=== PATIENT | male | born 1940 | race Two or more races ===

== ENCOUNTER 2016-11-16 06:03 | Inpatient (IN) | payer MEDICARE, OTHER ==
[2016-11-16] VITALS (29 sets, daily range): BP systolic 122–202; BP diastolic 49–98
[~2016-11-16] VITALS: Ht 172.7 cm; Wt 108.9 kg
[2016-11-16] MEDS ORDERED: IV SET PRIMARY PUMP SET 1 EA INFUS.SET MC ONE ×4 (06:33→10:11)
[2016-11-16] MEDS ORDERED: PROPOFOL 100 ML IV ONE (06:33)
[2016-11-16 06:38] LABS: ABG BASE EXCESS 1.9 mmol/L; ABG HCO3 38.7 mmol/L; ABG NOTIFIED BY EG; ABG PCO2 164.7 mmHg (35.0-45.0); ABG PH 6.989 (7.350-7.450); ABG PO2 188.2 mmHg (75.0-100.0); ABG TOTAL HEMOGLOBIN 14.3 G/dL (13.5-18.0); ALLEN TEST Pass; AaDO2 360.1 mmHg; O2Hb 96.9 % (94.0-97.0)
[2016-11-16] MEDS ORDERED: MIDAZOLAM HCL 2 MG/2ML VIAL ONE (06:44)
[2016-11-16 06:51] LABS: BASOPHILS # (AUTO) 0.1 /CMM (0.0-0.2); BASOPHILS % (AUTO) 0.3 % (0.0-2.0); DIFF TOTAL % 100 %; EOSINOPHILS # (AUTO) 0.3 /CMM (0.0-0.7); EOSINOPHILS % (AUTO) 1.3 % (0.0-6.0); HEMATOCRIT 44 % (39-51); HEMOGLOBIN 13.2 g/dL (13.5-17.5); LYMPHOCYTES # (AUTO) 1.6 /CMM (0.8-4.8); MEAN CORPUSCULAR HEMOGLOBIN 25 PG (26.0-33.0); MEAN CORPUSCULAR HGB CONC 30 g/dl (31.0-36.0); MEAN CORPUSCULAR VOLUME 84 fL (80-96); MONOCYTES # (AUTO) 0.6 /CMM (0.1-1.30); MONOCYTES % (AUTO) 3.1 % (2.0-12.0); NEUTROPHILS # (AUTO) 17.5 /CMM (1.8-8.9); NEUTROPHILS % (AUTO) 87.3 % (43.0-81.0); PLATELET COUNT (AUTO) 311 /CMM (150-450); RED BLOOD CELL COUNT(AUTO) 5.25 MIL/uL (4.5-6.0)
[2016-11-16] MEDS ORDERED: MIDAZOLAM 50 MG/10 ML VIAL ONE (07:00)
[2016-11-16] MEDS ORDERED: PROPOFOL 100 ML IV PRN (07:00)
[2016-11-16 07:07] LABS: INR 0.97 (0.87-1.13); LACTIC ACID 0.4 mmol/L (0.4-2.0); PROTHROMBIN TIME 10.5 SECS (9.5-12.7); TROPONIN I < 0.017 ng/mL (0.00-0.056)
[2016-11-16 07:12] LABS: ALANINE AMINOTRANSFERASE 41 U/L (12-78); ANION GAP 4 (5-14); ASPARTATE AMINOTRANSFERASE 19 U/L (15-37); BILIRUBIN,DIRECT 0.1 mg/dL (0.0-0.2); BILIRUBIN,TOTAL 0.3 mg/dL (0.2-1.0); CALCIUM, SERUM 8.7 mg/dL (8.5-10.1); CHLORIDE 104 mmol/L (98-107); CREATININE 2.3 mg/dL (0.6-1.3); GLUCOSE 208 mg/dL (74-106); INDIRECT BILIRUBIN 0.2 mg/dL (0.0-1.1); POTASSIUM 5.3 mmol/L (3.5-5.1); SODIUM SERUM 143 mmol/L (136-145); TOTAL PROTEIN, SERUM 7.5 g/dL (6.4-8.2); UREA NITROGEN, BLOOD 49 mg/dL (7-18)
[2016-11-16 07:13] LABS: CARBON DIOXIDE 40 mmol/L (21-32)
[2016-11-16] MEDS ORDERED: MIDAZOLAM HCL IV PRN (07:30)
[2016-11-16] MEDS ORDERED: VANCOMYCIN 1 GM in IV D5W 250 ML IV ONE ×2 (07:30→08:30)
[2016-11-16] MEDS ORDERED: PIPERACILLIN /TAZOBACTAM 3.375 G in IV D5W 50 ML IV ONE (07:30)
[2016-11-16] MEDS ORDERED: FUROSEMIDE 40 MG/4 ML VIAL IV ONE (07:30)
[2016-11-16] MEDS ORDERED: D5W IV PRN (07:30)
[2016-11-16] MEDS ORDERED: MIDAZOLAM HCL 2 MG/2ML VIAL IV ONE ×2 (07:30)
[2016-11-16] MEDS ORDERED: MIDAZOLAM HCL 100 MG in IV NS 0.9% 80 ML IV PRN (07:30)
[2016-11-16 07:51] LABS: ABG BASE EXCESS 1.5 mmol/L; ABG PH 7.349 (7.350-7.450); ABG PO2 129.1 mmHg (75.0-100.0); ABG TOTAL HEMOGLOBIN 13.4 G/dL (13.5-18.0); ALLEN TEST Pass; AaDO2 531.9 mmHg; O2Hb 97.2 % (94.0-97.0)
[2016-11-16 07:56] LABS: KETONES,URINE NEGATIVE (NEGATIVE); LEUKOCYTE ESTERASE ,URINE NEGATIVE (NEGATIVE)
[2016-11-16] MEDS ORDERED: FUROSEMIDE 40 MG/4 ML VIAL ONE (07:58)
[2016-11-16] MEDS ORDERED: FUROSEMIDE 20 MG/2 ML VIAL ONE (07:58)
[2016-11-16 08:01] LABS: ADD UA MICROSCOPIC YES
[2016-11-16 08:13] LABS: ADD URINE CULTURE NO; WBC,URINE 0-2 /HPF (0-3)
[2016-11-16] MEDS ORDERED: DEXTROSE 50%-WATER 50 ML DISP.SYRIN IV PRN (08:30)
[2016-11-16] MEDS ORDERED: ACETAMINOPHEN 325 MG TABLET PO PRN (08:30)
[2016-11-16] MEDS ORDERED: NOREPINEPHRINE 8 MG in IV D5W 500 ML IV PRN ×2 (08:30→09:30)
[2016-11-16] MEDS ORDERED: ALBUTEROL FS 2.5 MG/0.5 ML VIAL.NEB NEB PRN (08:30)
[2016-11-16] MEDS ORDERED: MORPHINE SULFATE INJ 2 MG/ML DISP.SYRIN IV PRN (08:30)
[2016-11-16] MEDS ORDERED: IPRATROPIUM NEB FS 0.5 MG/2.5 ML AMPUL.NEB NEB PRN (08:30)
[2016-11-16] MEDS ORDERED: SODIUM POLYSTYRENE SULFONATE 15 G/60 ML BOTTLE PO ONE (08:30)
[2016-11-16] MEDS ORDERED: BUMETANIDE INJ 1 MG in IV NS 0.9% 40 ML IV ONE (08:30)
[2016-11-16] MEDS ORDERED: REPA1TAB6 PO (08:37)
[2016-11-16] MEDS ORDERED: OXYC30TA2 PO (08:37)
[2016-11-16] MEDS ORDERED: ASPI-991 PO (08:37)
[2016-11-16] MEDS ORDERED: PRED10TA PO (08:37)
[2016-11-16] MEDS ORDERED: TAMS0.4C34 PO (08:37)
[2016-11-16] MEDS ORDERED: CLOP75TA2 PO (08:37)
[2016-11-16] MEDS ORDERED: ATOR20TA PO (08:37)
[2016-11-16] MEDS ORDERED: FENO145T20 PO (08:37)
[2016-11-16] MEDS ORDERED: CARV25TA2 PO (08:37)
[2016-11-16] MEDS ORDERED: ASPIRIN EC 81 MG TABLET.DR PO SCH (09:00)
[2016-11-16] MEDS ORDERED: FEE PK DOSING 1 MIN EA MC ONE (09:08)
[2016-11-16] MEDS ORDERED: SUCCINYLCHOLINE CHLORIDE 20 MG/ML VIAL IV ONE (09:18)
[2016-11-16] MEDS ORDERED: ETOMIDATE 2 MG/ML VIAL IV ONE (09:18)
[2016-11-16] MEDS ORDERED: FEE EMEERGENCY 1 MIN EA MC ONE (09:18)
[2016-11-16] MEDS: PROPOFOL 100 ML IV PRN ×3 (10:06→19:33)
[2016-11-16 11:36] LABS: ABG BASE EXCESS 6.3 mmol/L; ABG HCO3 32.9 mmol/L; ABG PCO2 56.2 mmHg (35.0-45.0); ABG PH 7.385 (7.350-7.450); ABG TOTAL HEMOGLOBIN 12.7 G/dL (13.5-18.0); ALLEN TEST Pass; AaDO2 440.4 mmHg; O2Hb 93.2 % (94.0-97.0)
[2016-11-16 12:09] LABS: CREATININE, URINE 151.9 MG/DL (30.0-125.0)
[2016-11-16] MEDS: TAMSULOSIN 0.4 MG CAP.SR.24H PO SCH (12:25)
[2016-11-16] MEDS: PANTOPRAZOLE 40 MG VIAL IV SCH (12:25)
[2016-11-16] MEDS: ATORVASTATIN 10 MG TABLET PO SCH (12:25)
[2016-11-16] MEDS: FENOFIBRATE NANOCRYS (145 MG) 145 MG TABLET PO SCH (12:25)
[2016-11-16] MEDS: methylPREDNISolone SOD SUCC 125 MG/2ML VIAL IV SCH ×3 (12:26→23:13)
[2016-11-16] MEDS: BLOOD SUGAR DIAGNOSTIC 1 EACH STRIP IN SCH ×3 (12:27→23:27)
[2016-11-16] MEDS: INSULIN REGULAR, HUMAN 100 UNIT/ML 3 ML VIAL SQ PRN ×3 (12:29→23:27)
[2016-11-16] MEDS: PIPERACILLIN /TAZOBACTAM 3.375 G in IV D5W 50 ML IV SCH ×3 (12:30→23:13)
[2016-11-16] MEDS: CLOPIDOGREL BISULFATE 75 MG TABLET PO SCH (12:30)
[2016-11-16] MEDS: HEPARIN SODIUM, PORCINE 5000 UNITS/1 ML VIAL SQ SCH ×2 (13:33→20:44)
[2016-11-16] MEDS: IPRATROPIUM NEB FS 0.5 MG/2.5 ML AMPUL.NEB NEB SCH ×2 (14:12→19:42)
[2016-11-16 15:07] LABS: ALBUMIN 2.5 g/dL (3.4-5.0); BILIRUBIN,DIRECT 0.2 mg/dL (0.0-0.2); BILIRUBIN,TOTAL 0.6 mg/dL (0.2-1.0); INDIRECT BILIRUBIN 0.4 mg/dL (0.0-1.1); TOTAL PROTEIN, SERUM 6.2 g/dL (6.4-8.2)
[2016-11-16 15:10] LABS: LACTIC ACID 1.4 mmol/L (0.4-2.0)
[2016-11-16] MEDS ORDERED: ALBUTEROL FS 2.5 MG/0.5 ML VIAL.NEB NEB SCH (15:30)
[2016-11-16] MEDS ORDERED: hydrALAZINE HCL IV 20 MG VIAL IV ONE (15:30)
[2016-11-16] MEDS: FUROSEMIDE 40 MG/4 ML VIAL IV SCH (16:26)
[2016-11-16] MEDS: ALBUTEROL FS 2.5 MG/0.5 ML VIAL.NEB NEB SCH (19:42)
[2016-11-16] MEDS ORDERED: SECONDARY IV SET 1 EA INFUS.SET MC ONE (23:05)
[2016-11-16] MEDS ORDERED: IV NS 0.9% 250 ML IV ONE (23:08)
[2016-11-17] VITALS (54 sets, daily range): BP systolic 113–192; BP diastolic 49–84
[2016-11-17] MEDS: ALBUTEROL FS 2.5 MG/0.5 ML VIAL.NEB NEB SCH ×4 (01:02→19:39)
[2016-11-17] MEDS: IPRATROPIUM NEB FS 0.5 MG/2.5 ML AMPUL.NEB NEB SCH ×4 (01:02→19:39)
[2016-11-17] MEDS ORDERED: hydrALAZINE HCL IV 20 MG VIAL ONE (02:38)
[2016-11-17] MEDS: hydrALAZINE HCL IV 20 MG VIAL IV PRN ×2 (02:43→19:00)
[2016-11-17] MEDS ORDERED: PROPOFOL 100 ML IV ONE (03:44)
[2016-11-17] MEDS: PROPOFOL 100 ML IV PRN ×2 (03:47→08:39)
[2016-11-17 04:52] LABS: DIFF TOTAL % 100 %; HEMATOCRIT 36 % (39-51); HEMOGLOBIN 11.6 g/dL (13.5-17.5); LYMPHOCYTES # (AUTO) 0.5 /CMM (0.8-4.8); LYMPHOCYTES % (AUTO) 3.8 % (20.0-44.0); MEAN CORPUSCULAR HEMOGLOBIN 26 PG (26.0-33.0); MEAN CORPUSCULAR HGB CONC 32 g/dl (31.0-36.0); MEAN CORPUSCULAR VOLUME 80 fL (80-96); MONOCYTES # (AUTO) 0.2 /CMM (0.1-1.30); MONOCYTES % (AUTO) 1.4 % (2.0-12.0); NEUTROPHILS # (AUTO) 12.8 /CMM (1.8-8.9); NEUTROPHILS % (AUTO) 94.8 % (43.0-81.0); PLATELET COUNT (AUTO) 254 /CMM (150-450); RED BLOOD CELL COUNT(AUTO) 4.46 MIL/uL (4.5-6.0); WHITE BLOOD COUNT (AUTO) 13.5 K/uL (4.3-11.0)
[2016-11-17] MEDS: methylPREDNISolone SOD SUCC 125 MG/2ML VIAL IV SCH ×4 (05:13→23:33)
[2016-11-17] MEDS: PIPERACILLIN /TAZOBACTAM 3.375 G in IV D5W 50 ML IV SCH ×4 (05:14→23:32)
[2016-11-17 05:15] LABS: ALBUMIN 2.1 g/dL (3.4-5.0); BILIRUBIN,TOTAL 0.5 mg/dL (0.2-1.0); CALCIUM, SERUM 7.7 mg/dL (8.5-10.1); CREATININE 2.7 mg/dL (0.6-1.3); PHOSPHORUS 2.8 mg/dL (2.5-4.9); POTASSIUM 3.4 mmol/L (3.5-5.1); TOTAL PROTEIN, SERUM 5.6 g/dL (6.4-8.2)
[2016-11-17 05:16] LABS: CHOLESTEROL 163 mg/dL (<200); HDL CHOLESTEROL 47 mg/dL (40-60); LDL 87 mg/dL (0-99); TRIGLYCERIDES 157 mg/dL (30-150)
[2016-11-17] MEDS: HEPARIN SODIUM, PORCINE 5000 UNITS/1 ML VIAL SQ SCH ×3 (05:16→21:02)
[2016-11-17 05:24] LABS: TROPONIN I 0.06 ng/mL (0.00-0.056)
[2016-11-17 05:30] LABS: CREATINE KINASE MB 0.4 ng/mL (0-3.6)
[2016-11-17 05:42] LABS: INR 1.06 (0.87-1.13); PROTHROMBIN TIME 11.5 SECS (9.5-12.7)
[2016-11-17] MEDS: INSULIN REGULAR, HUMAN 100 UNIT/ML 3 ML VIAL SQ PRN ×4 (05:47→23:35)
[2016-11-17] MEDS: BLOOD SUGAR DIAGNOSTIC 1 EACH STRIP IN SCH ×4 (05:49→23:35)
[2016-11-17] MEDS ORDERED: DC PROPOFOL WHEN EXTUBATED XX PRN (08:00)
[2016-11-17] MEDS: FENOFIBRATE NANOCRYS (145 MG) 145 MG TABLET PO SCH (08:40)
[2016-11-17] MEDS: PANTOPRAZOLE 40 MG VIAL IV SCH (08:40)
[2016-11-17] MEDS: TAMSULOSIN 0.4 MG CAP.SR.24H PO SCH (08:40)
[2016-11-17] MEDS: ASPIRIN 81 MG TAB.CHEW PO SCH (08:40)
[2016-11-17] MEDS: ATORVASTATIN 10 MG TABLET PO SCH (08:40)
[2016-11-17] MEDS: CLOPIDOGREL BISULFATE 75 MG TABLET PO SCH (08:40)
[2016-11-17] MEDS: FUROSEMIDE 40 MG/4 ML VIAL IV SCH (08:41)
[2016-11-17] MEDS ORDERED: VANCOMYCIN 1 GM in IV D5W 250 ML IV SCH (09:00)
[2016-11-17] MEDS ORDERED: POTASSIUM CHLORIDE 20 MEQ TAB.PRT.SR PO ONE (10:00)
[2016-11-17 10:14] LABS: IRON, SERUM 16 ug/dl (50-175); PERCENT SATURATION 7 % (14-33); TOTAL IRON BINDING CAPACITY 227 ug/dl (250-450)
[2016-11-17] MEDS: AMLODIPINE BESYLATE 10 MG TABLET PO SCH (10:50)
[2016-11-17 11:50] LABS: ABG BASE EXCESS 11.1 mmol/L; ABG HCO3 35.5 mmol/L; ABG PCO2 45.4 mmHg (35.0-45.0); ABG PH 7.511 (7.350-7.450); ABG PO2 73.7 mmHg (75.0-100.0); ALLEN TEST Pass; AaDO2 231.7 mmHg; O2Hb 93.8 % (94.0-97.0)
[2016-11-17] MEDS ORDERED: IV SET PRIMARY PUMP SET 1 EA INFUS.SET MC ONE (12:08)
[2016-11-17] MEDS ORDERED: VANCOMYCIN 1.25 GM in IV D5W 500 ML IV SCH (14:00)
[2016-11-17] MEDS ORDERED: FUROSEMIDE 40 MG/4 ML VIAL IV SCH (17:00)
[2016-11-17] MEDS ORDERED: PANTOPRAZOLE 40 MG VIAL IV SCH (19:30)
[2016-11-17] MEDS ORDERED: ZOLPIDEM TARTRATE 5 MG TABLET PO ONE (23:00)
[2016-11-18] VITALS (34 sets, daily range): BP systolic 135–192; BP diastolic 45–96
[2016-11-18] MEDS: ALBUTEROL FS 2.5 MG/0.5 ML VIAL.NEB NEB SCH ×4 (02:07→19:50)
[2016-11-18] MEDS: IPRATROPIUM NEB FS 0.5 MG/2.5 ML AMPUL.NEB NEB SCH ×4 (02:07→19:50)
[2016-11-18 04:46] LABS: BASOPHILS % (AUTO) 0.1 % (0.0-2.0); DIFF TOTAL % 100 %; HEMATOCRIT 39 % (39-51); HEMOGLOBIN 12.3 g/dL (13.5-17.5); LYMPHOCYTES # (AUTO) 0.4 /CMM (0.8-4.8); LYMPHOCYTES % (AUTO) 2.4 % (20.0-44.0); MEAN CORPUSCULAR HEMOGLOBIN 26 PG (26.0-33.0); MEAN CORPUSCULAR HGB CONC 32 g/dl (31.0-36.0); MEAN CORPUSCULAR VOLUME 81 fL (80-96); MONOCYTES # (AUTO) 0.6 /CMM (0.1-1.30); NEUTROPHILS # (AUTO) 17.4 /CMM (1.8-8.9); NEUTROPHILS % (AUTO) 94.5 % (43.0-81.0); PLATELET COUNT (AUTO) 270 /CMM (150-450); RED BLOOD CELL COUNT(AUTO) 4.77 MIL/uL (4.5-6.0); WHITE BLOOD COUNT (AUTO) 18.4 K/uL (4.3-11.0)
[2016-11-18 05:06] LABS: CALCIUM, SERUM 7.8 mg/dL (8.5-10.1); PHOSPHORUS 5.4 mg/dL (2.5-4.9); POTASSIUM 3.3 mmol/L (3.5-5.1)
[2016-11-18] MEDS: BLOOD SUGAR DIAGNOSTIC 1 EACH STRIP IN SCH ×3 (06:00→17:16)
[2016-11-18] MEDS: methylPREDNISolone SOD SUCC 125 MG/2ML VIAL IV SCH ×3 (06:38→17:16)
[2016-11-18] MEDS: hydrALAZINE HCL IV 20 MG VIAL IV PRN ×2 (06:38→18:35)
[2016-11-18] MEDS: HEPARIN SODIUM, PORCINE 5000 UNITS/1 ML VIAL SQ SCH ×3 (06:39→21:23)
[2016-11-18] MEDS: INSULIN REGULAR, HUMAN 100 UNIT/ML 3 ML VIAL SQ PRN ×3 (06:40→17:21)
[2016-11-18] MEDS: PIPERACILLIN /TAZOBACTAM 3.375 G in IV D5W 50 ML IV SCH ×3 (06:42→17:17)
[2016-11-18] MEDS ORDERED: POTASSIUM CHLORIDE 20 MEQ POWDER PACKET PO ONE (09:00)
[2016-11-18 09:13] LABS: ABG BASE EXCESS 10.3 mmol/L; ABG HCO3 36.4 mmol/L; ABG PCO2 54.2 mmHg (35.0-45.0); ABG PH 7.445 (7.350-7.450); ABG PO2 57.9 mmHg (75.0-100.0); ABG TOTAL HEMOGLOBIN 13.9 G/dL (13.5-18.0); ALLEN TEST Pass; AaDO2 128.6 mmHg; O2Hb 88.5 % (94.0-97.0)
[2016-11-18] MEDS: FUROSEMIDE 40 MG/4 ML VIAL IV SCH ×2 (09:31→17:16)
[2016-11-18] MEDS: ASPIRIN 81 MG TAB.CHEW PO SCH (09:32)
[2016-11-18] MEDS: PANTOPRAZOLE 40 MG VIAL IV SCH (09:32)
[2016-11-18] MEDS: CLOPIDOGREL BISULFATE 75 MG TABLET PO SCH (09:33)
[2016-11-18] MEDS: AMLODIPINE BESYLATE 10 MG TABLET PO SCH (09:33)
[2016-11-18] MEDS: ATORVASTATIN 10 MG TABLET PO SCH (09:33)
[2016-11-18] MEDS: FENOFIBRATE NANOCRYS (145 MG) 145 MG TABLET PO SCH (09:33)
[2016-11-18] MEDS: hydrALAZINE HCL 25 MG TABLET PO SCH ×3 (09:36→21:22)
[2016-11-18] MEDS: TAMSULOSIN 0.4 MG CAP.SR.24H PO SCH (09:36)
[2016-11-18] MEDS ORDERED: POLYETHYLENE GLYCOL 3350 17 GM POWD.PACK PO PRN (12:00)
[2016-11-18] MEDS: MENTHOL/CETYLPYRD (CEPACOL) 1 LOZ LOZENGE PO PRN ×2 (12:42→17:19)
[2016-11-18] MEDS ORDERED: IV NS 0.9% 250 ML IV ONE (17:07)
[2016-11-18] MEDS: Z GUARD REMEDY 2 OZ OINT TP SCH ×2 (17:16→17:18)
[2016-11-18] MEDS: LEVOFLOXACIN (250MG) 250 MG TABLET PO SCH (18:35)
[2016-11-19] VITALS (24 sets, daily range): BP systolic 142–190; BP diastolic 56–90
[2016-11-19] MEDS: BLOOD SUGAR DIAGNOSTIC 1 EACH STRIP IN SCH ×5 (00:16→21:17)
[2016-11-19] MEDS: methylPREDNISolone SOD SUCC 125 MG/2ML VIAL IV SCH ×2 (00:16→04:34)
[2016-11-19] MEDS: INSULIN REGULAR, HUMAN 100 UNIT/ML 3 ML VIAL SQ PRN ×3 (00:17→21:11)
[2016-11-19] MEDS: IPRATROPIUM NEB FS 0.5 MG/2.5 ML AMPUL.NEB NEB SCH ×4 (01:28→19:48)
[2016-11-19] MEDS: ALBUTEROL FS 2.5 MG/0.5 ML VIAL.NEB NEB SCH ×4 (01:28→19:49)
[2016-11-19 04:42] LABS: DIFF TOTAL % 100 %; HEMATOCRIT 40 % (39-51); HEMOGLOBIN 12.9 g/dL (13.5-17.5); LYMPHOCYTES # (AUTO) 0.6 /CMM (0.8-4.8); LYMPHOCYTES % (AUTO) 3.9 % (20.0-44.0); MEAN CORPUSCULAR HEMOGLOBIN 26 PG (26.0-33.0); MEAN CORPUSCULAR HGB CONC 32 g/dl (31.0-36.0); MEAN CORPUSCULAR VOLUME 81 fL (80-96); MONOCYTES # (AUTO) 0.5 /CMM (0.1-1.30); MONOCYTES % (AUTO) 3.3 % (2.0-12.0); NEUTROPHILS # (AUTO) 15.1 /CMM (1.8-8.9); NEUTROPHILS % (AUTO) 92.8 % (43.0-81.0); PLATELET COUNT (AUTO) 273 /CMM (150-450); RED BLOOD CELL COUNT(AUTO) 4.98 MIL/uL (4.5-6.0); WHITE BLOOD COUNT (AUTO) 16.3 K/uL (4.3-11.0)
[2016-11-19] MEDS: HEPARIN SODIUM, PORCINE 5000 UNITS/1 ML VIAL SQ SCH ×3 (04:56→21:07)
[2016-11-19] MEDS: hydrALAZINE HCL 25 MG TABLET PO SCH ×4 (05:00→21:06)
[2016-11-19 05:09] LABS: CALCIUM, SERUM 8.2 mg/dL (8.5-10.1); CREATININE 3.1 mg/dL (0.6-1.3); POTASSIUM 3.7 mmol/L (3.5-5.1)
[2016-11-19] MEDS: CLOPIDOGREL BISULFATE 75 MG TABLET PO SCH (08:22)
[2016-11-19] MEDS: AMLODIPINE BESYLATE 10 MG TABLET PO SCH (08:22)
[2016-11-19] MEDS: PANTOPRAZOLE 40 MG VIAL IV SCH (08:23)
[2016-11-19] MEDS: ATORVASTATIN 10 MG TABLET PO SCH (08:23)
[2016-11-19] MEDS: ASPIRIN 81 MG TAB.CHEW PO SCH (08:23)
[2016-11-19] MEDS: FENOFIBRATE NANOCRYS (145 MG) 145 MG TABLET PO SCH (08:23)
[2016-11-19] MEDS: FUROSEMIDE 40 MG/4 ML VIAL IV SCH ×2 (08:24→17:07)
[2016-11-19] MEDS: TAMSULOSIN 0.4 MG CAP.SR.24H PO SCH (08:25)
[2016-11-19] MEDS: Z GUARD REMEDY 2 OZ OINT TP SCH ×2 (08:26→17:07)
[2016-11-19] MEDS ORDERED: SALINE NASAL SPRAY 0.65% 1 BOTTLE BOTTLE NS PRN (09:30)
[2016-11-19] MEDS: MENTHOL/CETYLPYRD (CEPACOL) 1 LOZ LOZENGE PO PRN (10:23)
[2016-11-19] MEDS: LEVOFLOXACIN (250MG) 250 MG TABLET PO SCH (17:59)
[2016-11-19] MEDS ORDERED: DEXTROSE 50%-WATER 50 ML DISP.SYRIN IV PRN (20:30)
[2016-11-20] VITALS (7 sets, daily range): BP systolic 139–185; BP diastolic 55–85
[2016-11-20] MEDS: IPRATROPIUM NEB FS 0.5 MG/2.5 ML AMPUL.NEB NEB SCH ×4 (01:27→19:17)
[2016-11-20] MEDS: ALBUTEROL FS 2.5 MG/0.5 ML VIAL.NEB NEB SCH ×4 (01:27→19:17)
[2016-11-20] MEDS: hydrALAZINE HCL IV 20 MG VIAL IV PRN (02:09)
[2016-11-20] MEDS: hydrALAZINE HCL 25 MG TABLET PO SCH ×3 (06:03→21:35)
[2016-11-20] MEDS: HEPARIN SODIUM, PORCINE 5000 UNITS/1 ML VIAL SQ SCH ×3 (06:04→21:34)
[2016-11-20] MEDS: BLOOD SUGAR DIAGNOSTIC 1 EACH STRIP IN SCH ×4 (06:27→21:38)
[2016-11-20 06:54] LABS: BASOPHILS % (AUTO) 0.1 % (0.0-2.0); DIFF TOTAL % 100 %; EOSINOPHILS % (AUTO) 0.2 % (0.0-6.0); HEMATOCRIT 45 % (39-51); LYMPHOCYTES # (AUTO) 1.3 /CMM (0.8-4.8); LYMPHOCYTES % (AUTO) 8.5 % (20.0-44.0); MEAN CORPUSCULAR HEMOGLOBIN 26 PG (26.0-33.0); MEAN CORPUSCULAR HGB CONC 31 g/dl (31.0-36.0); MEAN CORPUSCULAR VOLUME 81 fL (80-96); MONOCYTES % (AUTO) 6.7 % (2.0-12.0); NEUTROPHILS % (AUTO) 84.5 % (43.0-81.0); PLATELET COUNT (AUTO) 276 /CMM (150-450); RED BLOOD CELL COUNT(AUTO) 5.49 MIL/uL (4.5-6.0); WHITE BLOOD COUNT (AUTO) 15.4 K/uL (4.3-11.0)
[2016-11-20 07:20] LABS: CALCIUM, SERUM 8.3 mg/dL (8.5-10.1); CREATININE 2.9 mg/dL (0.6-1.3); POTASSIUM 3.5 mmol/L (3.5-5.1)
[2016-11-20] MEDS: PANTOPRAZOLE 40 MG VIAL IV SCH (09:09)
[2016-11-20] MEDS: CLOPIDOGREL BISULFATE 75 MG TABLET PO SCH (09:09)
[2016-11-20] MEDS: methylPREDNISolone SOD SUCC 125 MG/2ML VIAL IV SCH (09:09)
[2016-11-20] MEDS: FENOFIBRATE NANOCRYS (145 MG) 145 MG TABLET PO SCH (09:10)
[2016-11-20] MEDS: ATORVASTATIN 10 MG TABLET PO SCH (09:10)
[2016-11-20] MEDS: TAMSULOSIN 0.4 MG CAP.SR.24H PO SCH (09:10)
[2016-11-20] MEDS: ASPIRIN 81 MG TAB.CHEW PO SCH (09:10)
[2016-11-20] MEDS: NIFEdipine XL (30MG) 30 MG TAB PO SCH (09:10)
[2016-11-20] MEDS: Z GUARD REMEDY 2 OZ OINT TP SCH ×2 (09:10→17:11)
[2016-11-20] MEDS: FUROSEMIDE 40 MG/4 ML VIAL IV SCH (09:13)
[2016-11-20] MEDS: INSULIN REGULAR, HUMAN 100 UNIT/ML 3 ML VIAL SQ PRN ×3 (12:08→21:35)
[2016-11-20] MEDS: Z GUARD REMEDY 2 OZ OINT TP PRN (17:11)
[2016-11-20] MEDS: LEVOFLOXACIN (250MG) 250 MG TABLET PO SCH (17:30)
[2016-11-21] VITALS: BP 149/56
[2016-11-21] MEDS: ALBUTEROL FS 2.5 MG/0.5 ML VIAL.NEB NEB SCH ×4 (02:26→19:46)
[2016-11-21] MEDS: IPRATROPIUM NEB FS 0.5 MG/2.5 ML AMPUL.NEB NEB SCH ×4 (02:26→19:46)
[2016-11-21 04:00] VITALS: BP 153/50
[2016-11-21] MEDS: hydrALAZINE HCL 25 MG TABLET PO SCH ×3 (05:52→21:33)
[2016-11-21] MEDS: HEPARIN SODIUM, PORCINE 5000 UNITS/1 ML VIAL SQ SCH ×3 (05:57→21:34)
[2016-11-21] MEDS: BLOOD SUGAR DIAGNOSTIC 1 EACH STRIP IN SCH ×4 (06:31→21:43)
[2016-11-21 07:32] LABS: DIFF TOTAL % 100 %; EOSINOPHILS # (AUTO) 0.1 /CMM (0.0-0.7); EOSINOPHILS % (AUTO) 1.1 % (0.0-6.0); HEMATOCRIT 42 % (39-51); HEMOGLOBIN 13.1 g/dL (13.5-17.5); LYMPHOCYTES # (AUTO) 1.3 /CMM (0.8-4.8); LYMPHOCYTES % (AUTO) 9.4 % (20.0-44.0); MEAN CORPUSCULAR HEMOGLOBIN 26 PG (26.0-33.0); MEAN CORPUSCULAR HGB CONC 31 g/dl (31.0-36.0); MEAN CORPUSCULAR VOLUME 82 fL (80-96); MONOCYTES # (AUTO) 0.9 /CMM (0.1-1.30); MONOCYTES % (AUTO) 6.6 % (2.0-12.0); NEUTROPHILS # (AUTO) 11.1 /CMM (1.8-8.9); NEUTROPHILS % (AUTO) 82.9 % (43.0-81.0); PLATELET COUNT (AUTO) 247 /CMM (150-450); WHITE BLOOD COUNT (AUTO) 13.4 K/uL (4.3-11.0)
[2016-11-21 07:45] LABS: CALCIUM, SERUM 8.4 mg/dL (8.5-10.1); CREATININE 2.6 mg/dL (0.6-1.3); POTASSIUM 3.5 mmol/L (3.5-5.1)
[2016-11-21 08:00] VITALS: BP 144/63
[2016-11-21] MEDS: methylPREDNISolone SOD SUCC 125 MG/2ML VIAL IV SCH (08:10)
[2016-11-21] MEDS: FENOFIBRATE NANOCRYS (145 MG) 145 MG TABLET PO SCH (08:10)
[2016-11-21] MEDS: CLOPIDOGREL BISULFATE 75 MG TABLET PO SCH (08:10)
[2016-11-21] MEDS: ATORVASTATIN 10 MG TABLET PO SCH (08:10)
[2016-11-21] MEDS: FUROSEMIDE 40 MG/4 ML VIAL IV SCH ×2 (08:10→17:28)
[2016-11-21] MEDS: TAMSULOSIN 0.4 MG CAP.SR.24H PO SCH (08:10)
[2016-11-21] MEDS: ASPIRIN 81 MG TAB.CHEW PO SCH (08:10)
[2016-11-21] MEDS: PANTOPRAZOLE 40 MG VIAL IV SCH (08:10)
[2016-11-21] MEDS: Z GUARD REMEDY 2 OZ OINT TP PRN (08:11)
[2016-11-21] MEDS: NIFEdipine XL (30MG) 30 MG TAB PO SCH (08:11)
[2016-11-21] MEDS: Z GUARD REMEDY 2 OZ OINT TP SCH ×2 (08:12→17:29)
[2016-11-21 12:00] VITALS: BP 114/51
[2016-11-21] MEDS: INSULIN REGULAR, HUMAN 100 UNIT/ML 3 ML VIAL SQ PRN ×2 (12:19→17:31)
[2016-11-21] MEDS: MENTHOL/CETYLPYRD (CEPACOL) 1 LOZ LOZENGE PO PRN (12:26)
[2016-11-21 16:00] VITALS: BP_SYST 140; BP_SYST 146; BP_DIAS 51; BP_DIAS 98
[2016-11-21] MEDS: LEVOFLOXACIN (250MG) 250 MG TABLET PO SCH (17:31)
[2016-11-21 20:00] VITALS: BP 160/60
[2016-11-22] MEDS: ALBUTEROL FS 2.5 MG/0.5 ML VIAL.NEB NEB SCH ×5 (02:40→20:51)
[2016-11-22] MEDS: IPRATROPIUM NEB FS 0.5 MG/2.5 ML AMPUL.NEB NEB SCH ×5 (02:41→20:51)
[2016-11-22 04:00] VITALS: BP 159/57
[2016-11-22] MEDS: hydrALAZINE HCL 25 MG TABLET PO SCH ×3 (04:31→21:12)
[2016-11-22] MEDS: HEPARIN SODIUM, PORCINE 5000 UNITS/1 ML VIAL SQ SCH ×3 (04:31→21:13)
[2016-11-22 07:19] LABS: BASOPHILS % (AUTO) 0.1 % (0.0-2.0); DIFF TOTAL % 100 %; EOSINOPHILS # (AUTO) 0.2 /CMM (0.0-0.7); EOSINOPHILS % (AUTO) 1.7 % (0.0-6.0); HEMATOCRIT 39 % (39-51); HEMOGLOBIN 12.4 g/dL (13.5-17.5); LYMPHOCYTES # (AUTO) 1.2 /CMM (0.8-4.8); LYMPHOCYTES % (AUTO) 9.4 % (20.0-44.0); MEAN CORPUSCULAR HEMOGLOBIN 26 PG (26.0-33.0); MEAN CORPUSCULAR HGB CONC 32 g/dl (31.0-36.0); MEAN CORPUSCULAR VOLUME 82 fL (80-96); MONOCYTES # (AUTO) 0.8 /CMM (0.1-1.30); MONOCYTES % (AUTO) 6.5 % (2.0-12.0); NEUTROPHILS # (AUTO) 10.5 /CMM (1.8-8.9); NEUTROPHILS % (AUTO) 82.3 % (43.0-81.0); PLATELET COUNT (AUTO) 231 /CMM (150-450); RED BLOOD CELL COUNT(AUTO) 4.78 MIL/uL (4.5-6.0); WHITE BLOOD COUNT (AUTO) 12.8 K/uL (4.3-11.0)
[2016-11-22 07:45] LABS: CALCIUM, SERUM 7.9 mg/dL (8.5-10.1); CREATININE 2.5 mg/dL (0.6-1.3); POTASSIUM 3.6 mmol/L (3.5-5.1)
[2016-11-22 08:00] VITALS: BP 162/49
[2016-11-22] MEDS: BLOOD SUGAR DIAGNOSTIC 1 EACH STRIP IN SCH ×4 (08:22→21:17)
[2016-11-22] MEDS: methylPREDNISolone SOD SUCC 125 MG/2ML VIAL IV SCH (08:26)
[2016-11-22] MEDS: TAMSULOSIN 0.4 MG CAP.SR.24H PO SCH (08:26)
[2016-11-22] MEDS: PANTOPRAZOLE 40 MG VIAL IV SCH (08:27)
[2016-11-22] MEDS: NIFEdipine XL (30MG) 30 MG TAB PO SCH (08:27)
[2016-11-22] MEDS: FENOFIBRATE NANOCRYS (145 MG) 145 MG TABLET PO SCH (08:27)
[2016-11-22] MEDS: FUROSEMIDE 40 MG/4 ML VIAL IV SCH ×2 (08:27→16:47)
[2016-11-22] MEDS: ASPIRIN 81 MG TAB.CHEW PO SCH (08:27)
[2016-11-22] MEDS: CLOPIDOGREL BISULFATE 75 MG TABLET PO SCH (08:27)
[2016-11-22] MEDS: ATORVASTATIN 10 MG TABLET PO SCH (08:27)
[2016-11-22] MEDS: Z GUARD REMEDY 2 OZ OINT TP SCH ×2 (09:00→17:36)
[2016-11-22] MEDS ORDERED: METOLAZONE 2.5 MG TABLET PO ONE (10:30)
[2016-11-22 12:00] VITALS: BP 141/75
[2016-11-22] MEDS: INSULIN REGULAR, HUMAN 100 UNIT/ML 3 ML VIAL SQ PRN (12:35)
[2016-11-22 14:00] VITALS: BP 126/44
[2016-11-22] MEDS: LEVOFLOXACIN (250MG) 250 MG TABLET PO SCH (17:37)
[2016-11-22 20:00] VITALS: BP 142/59
[2016-11-22 23:00] VITALS: BP 136/58
[2016-11-23] VITALS: BP 136/58
[2016-11-23] MEDS: IPRATROPIUM NEB FS 0.5 MG/2.5 ML AMPUL.NEB NEB SCH ×4 (01:30→19:48)
[2016-11-23] MEDS: ALBUTEROL FS 2.5 MG/0.5 ML VIAL.NEB NEB SCH ×4 (01:30→19:48)
[2016-11-23] MEDS: HEPARIN SODIUM, PORCINE 5000 UNITS/1 ML VIAL SQ SCH (05:00)
[2016-11-23] MEDS: hydrALAZINE HCL 25 MG TABLET PO SCH ×3 (05:56→21:51)
[2016-11-23] MEDS: BLOOD SUGAR DIAGNOSTIC 1 EACH STRIP IN SCH ×4 (06:32→22:20)
[2016-11-23 07:43] LABS: BASOPHILS % (AUTO) 0.2 % (0.0-2.0); DIFF TOTAL % 100 %; EOSINOPHILS # (AUTO) 0.4 /CMM (0.0-0.7); EOSINOPHILS % (AUTO) 2.9 % (0.0-6.0); HEMATOCRIT 41 % (39-51); HEMOGLOBIN 12.9 g/dL (13.5-17.5); LYMPHOCYTES # (AUTO) 1.2 /CMM (0.8-4.8); LYMPHOCYTES % (AUTO) 9.5 % (20.0-44.0); MEAN CORPUSCULAR HEMOGLOBIN 26 PG (26.0-33.0); MEAN CORPUSCULAR HGB CONC 32 g/dl (31.0-36.0); MEAN CORPUSCULAR VOLUME 81 fL (80-96); MONOCYTES # (AUTO) 0.7 /CMM (0.1-1.30); MONOCYTES % (AUTO) 5.3 % (2.0-12.0); NEUTROPHILS % (AUTO) 82.1 % (43.0-81.0); PLATELET COUNT (AUTO) 244 /CMM (150-450); RED BLOOD CELL COUNT(AUTO) 4.98 MIL/uL (4.5-6.0); WHITE BLOOD COUNT (AUTO) 12.2 K/uL (4.3-11.0)
[2016-11-23 08:00] VITALS: BP 131/45
[2016-11-23 08:03] LABS: CALCIUM, SERUM 8.2 mg/dL (8.5-10.1); CREATININE 2.7 mg/dL (0.6-1.3); POTASSIUM 3.4 mmol/L (3.5-5.1)
[2016-11-23] MEDS: ASPIRIN 81 MG TAB.CHEW PO SCH (08:43)
[2016-11-23] MEDS: ATORVASTATIN 10 MG TABLET PO SCH (08:43)
[2016-11-23] MEDS: FENOFIBRATE NANOCRYS (145 MG) 145 MG TABLET PO SCH (08:43)
[2016-11-23] MEDS: CLOPIDOGREL BISULFATE 75 MG TABLET PO SCH (08:43)
[2016-11-23] MEDS: methylPREDNISolone SOD SUCC 125 MG/2ML VIAL IV SCH (08:43)
[2016-11-23] MEDS: TAMSULOSIN 0.4 MG CAP.SR.24H PO SCH (08:43)
[2016-11-23] MEDS: PANTOPRAZOLE 40 MG VIAL IV SCH (08:43)
[2016-11-23] MEDS: Z GUARD REMEDY 2 OZ OINT TP SCH ×2 (08:47→17:36)
[2016-11-23] MEDS: FUROSEMIDE 40 MG/4 ML VIAL IV SCH ×3 (08:54→17:35)
[2016-11-23] MEDS: NIFEdipine XL (30MG) 30 MG TAB PO SCH (08:55)
[2016-11-23] MEDS: METOLAZONE 2.5 MG TABLET PO ONE ×2 (10:19→10:25)
[2016-11-23] MEDS: INSULIN REGULAR, HUMAN 100 UNIT/ML 3 ML VIAL SQ PRN ×3 (12:09→22:26)
[2016-11-23 16:00] VITALS: BP 136/66
[2016-11-23] MEDS: LEVOFLOXACIN (250MG) 250 MG TABLET PO SCH (17:36)
[2016-11-23 20:00] VITALS: BP 142/69
[2016-11-23 20:58] VITALS: BP 142/69
[2016-11-24] MEDS: ALBUTEROL FS 2.5 MG/0.5 ML VIAL.NEB NEB SCH ×2 (02:05→08:08)
[2016-11-24] MEDS: IPRATROPIUM NEB FS 0.5 MG/2.5 ML AMPUL.NEB NEB SCH ×2 (02:05→08:08)
[2016-11-24] MEDS: BLOOD SUGAR DIAGNOSTIC 1 EACH STRIP IN SCH (06:32)
[2016-11-24] MEDS: hydrALAZINE HCL 25 MG TABLET PO SCH (06:38)
[2016-11-24 06:48] LABS: BASOPHILS % (AUTO) 0.3 % (0.0-2.0); DIFF TOTAL % 100 %; EOSINOPHILS # (AUTO) 0.3 /CMM (0.0-0.7); EOSINOPHILS % (AUTO) 2.3 % (0.0-6.0); HEMATOCRIT 40 % (39-51); HEMOGLOBIN 12.8 g/dL (13.5-17.5); LYMPHOCYTES # (AUTO) 1.9 /CMM (0.8-4.8); LYMPHOCYTES % (AUTO) 15.5 % (20.0-44.0); MEAN CORPUSCULAR HEMOGLOBIN 26 PG (26.0-33.0); MEAN CORPUSCULAR HGB CONC 32 g/dl (31.0-36.0); MEAN CORPUSCULAR VOLUME 80 fL (80-96); NEUTROPHILS # (AUTO) 8.9 /CMM (1.8-8.9); NEUTROPHILS % (AUTO) 73.9 % (43.0-81.0); PLATELET COUNT (AUTO) 269 /CMM (150-450); RED BLOOD CELL COUNT(AUTO) 4.98 MIL/uL (4.5-6.0)
[2016-11-24 07:11] LABS: CALCIUM, SERUM 8.4 mg/dL (8.5-10.1); CREATININE 2.9 mg/dL (0.6-1.3); POTASSIUM 3.5 mmol/L (3.5-5.1)
[2016-11-24 08:00] VITALS: BP 158/68
[2016-11-24] MEDS: TAMSULOSIN 0.4 MG CAP.SR.24H PO SCH (08:29)
[2016-11-24] MEDS: FENOFIBRATE NANOCRYS (145 MG) 145 MG TABLET PO SCH (08:29)
[2016-11-24] MEDS: PANTOPRAZOLE 40 MG VIAL IV SCH (08:29)
[2016-11-24] MEDS: CLOPIDOGREL BISULFATE 75 MG TABLET PO SCH (08:29)
[2016-11-24 08:30] VITALS: BP 158/68
[2016-11-24] MEDS: ATORVASTATIN 10 MG TABLET PO SCH (08:30)
[2016-11-24] MEDS: NIFEdipine XL (30MG) 30 MG TAB PO SCH (08:30)
[2016-11-24] MEDS: ASPIRIN 81 MG TAB.CHEW PO SCH (08:30)
[2016-11-24] MEDS: methylPREDNISolone SOD SUCC 125 MG/2ML VIAL IV SCH (08:31)
[2016-11-24] MEDS: FUROSEMIDE 40 MG/4 ML VIAL IV SCH (08:31)
[2016-11-24] MEDS: Z GUARD REMEDY 2 OZ OINT TP SCH (08:42)
== END 2016-11-24 11:15 | disposition home or self-care (01) | DRG 871 ==
LOC: ER 06:10 → ICU 08:21 → TELE-TD 11-19 13:13 → MEDSG1 11-21 10:29 → MED 11-22 22:51
PROVIDERS: ADMIT Internal Medicine; ATTEND Internal Medicine
PROC: 5A1945Z Respiratory Ventilation, 24-96 Consecutive Hours (ICD-10-PCS; principal; 2016-11-16)
PROC: 0BH17EZ Insertion of Endotracheal Airway into Trachea, Via Natural or Artificial Opening (ICD-10-PCS; 2016-11-16)
PROC: 02HV33Z Insertion of Infusion Device into Superior Vena Cava, Percutaneous Approach (ICD-10-PCS; 2016-11-16)
DX: A41.9 Sepsis, unspecified organism (principal); R65.21 Severe sepsis with septic shock; J69.0 Pneumonitis due to inhalation of food and vomit; G92 Toxic encephalopathy; J96.21 Acute and chronic respiratory failure with hypoxia; J96.22 Acute and chronic respiratory failure with hypercapnia; I50.23 Acute on chronic systolic (congestive) heart failure; N17.0 Acute kidney failure with tubular necrosis; R53.2 Functional quadriplegia; I21.4 Non-ST elevation (NSTEMI) myocardial infarction; J44.1 Chronic obstructive pulmonary disease with (acute) exacerbation; E44.0 Moderate protein-calorie malnutrition; D68.59 Other primary thrombophilia; E66.2 Morbid (severe) obesity with alveolar hypoventilation; J98.11 Atelectasis; Z86.73 Personal history of transient ischemic attack (TIA), and cerebral infarction without residual deficits; I25.10 Atherosclerotic heart disease of native coronary artery without angina pectoris; I13.10 Hypertensive heart and chronic kidney disease without heart failure, with stage 1 through stage 4 chronic kidney disease, or unspecified chronic kidney disease; E78.5 Hyperlipidemia, unspecified; E11.22 Type 2 diabetes mellitus with diabetic chronic kidney disease; Z95.1 Presence of aortocoronary bypass graft; E87.5 Hyperkalemia; D50.9 Iron deficiency anemia, unspecified; N18.3 Chronic kidney disease, stage 3 (moderate); E87.6 Hypokalemia; Z99.81 Dependence on supplemental oxygen
CPT/HCPCS: 31720; 36415; 36600; 71010-TC; 74000-TC; 80048-TC; 80053-TC; 80061-TC; 80076-TC; 81000-TC; 82040-TC; 82553-TC; 82570-TC; 82803-TC; 82962-TC; 83540-TC; 83605-TC; 83735-TC; 83880; 84100-TC; 84132-TC; 84439-TC; 84484-TC; 85025-TC; 85378-TC; 85385-TC; 85610-TC; 85730-TC; 86850-TC; 86901; 87040-TC; 87070-TC; 87081-TC; 87086-TC; 87400; 93307-TC; 94002-TC; 94003-TC; 94760-TC; 94799-TC; 97001-TC; 97116-TC; 97530-TC; A4216; A4606; A6253; C1751; C9113; J0330; J0360; J1644; J1815; J1940; J2250; J2543; J2930; J3370; J3490; J7030; J7050; J7060; Z7610

== ENCOUNTER 2016-12-01 06:24 | Inpatient (IN) | payer MEDICARE, OTHER ==
[~2016-12-01] VITALS: Ht 172.7 cm; Wt 110.2 kg
[~2016-12-01 06:24] MED LIST: ASPI-991 PO; ATOR20TA PO; CARV25TA2 PO; CLOP75TA2 PO; FENO145T20 PO; OXYC30TA2 PO; PRED10TA PO; REPA1TAB6 PO; TAMS0.4C34 PO
[2016-12-01] MEDS ORDERED: ALBUTEROL FS 2.5 MG/3 ML VIAL.NEB ONE (06:32)
[2016-12-01] MEDS ORDERED: IPRATROPIUM NEB FS 0.5 MG/2.5 ML AMPUL.NEB ONE (06:32)
[2016-12-01] MEDS ORDERED: methylPREDNISolone SOD SUCC 125 MG/2ML VIAL IV ONE (07:00)
[2016-12-01] MEDS ORDERED: IPRATROPIUM NEB FS 0.5 MG/2.5 ML AMPUL.NEB NEB ONE (07:00)
[2016-12-01] MEDS ORDERED: ALBUTEROL FS 2.5 MG/3 ML VIAL.NEB NEB ONE (07:00)
[2016-12-01] MEDS ORDERED: FUROSEMIDE 40 MG/4 ML VIAL ONE (07:21)
[2016-12-01] MEDS ORDERED: NITROGLYCERIN PACKET 1 GM PACKET ONE (07:21)
[2016-12-01] MEDS ORDERED: NITROGLYCERIN PACKET 1 GM PACKET TOP ONE (07:30)
[2016-12-01] MEDS ORDERED: FUROSEMIDE 40 MG/4 ML VIAL IV ONE (07:30)
[2016-12-01 07:38] LABS: DIFF TOTAL % 100 %; EOSINOPHILS # (AUTO) 0.2 /CMM (0.0-0.7); EOSINOPHILS % (AUTO) 1.6 % (0.0-6.0); HEMATOCRIT 38 % (39-51); HEMOGLOBIN 12.1 g/dL (13.5-17.5); LYMPHOCYTES # (AUTO) 1.6 /CMM (0.8-4.8); LYMPHOCYTES % (AUTO) 11.6 % (20.0-44.0); MEAN CORPUSCULAR HEMOGLOBIN 26 PG (26.0-33.0); MEAN CORPUSCULAR HGB CONC 32 g/dl (31.0-36.0); MEAN CORPUSCULAR VOLUME 81 fL (80-96); MONOCYTES # (AUTO) 0.6 /CMM (0.1-1.30); NEUTROPHILS # (AUTO) 11.3 /CMM (1.8-8.9); NEUTROPHILS % (AUTO) 82.8 % (43.0-81.0); PLATELET COUNT (AUTO) 327 /CMM (150-450); RED BLOOD CELL COUNT(AUTO) 4.74 MIL/uL (4.5-6.0); WHITE BLOOD COUNT (AUTO) 13.7 K/uL (4.3-11.0)
[2016-12-01] MEDS ORDERED: IV SET PRIMARY PUMP SET 1 EA INFUS.SET MC ONE ×2 (07:45→08:18)
[2016-12-01 07:50] LABS: CALCIUM, SERUM 8.6 mg/dL (8.5-10.1); CREATININE 2.1 mg/dL (0.6-1.3); POTASSIUM 3.8 mmol/L (3.5-5.1)
[2016-12-01 07:59] LABS: TROPONIN I 0.041 ng/mL (0.00-0.056)
[2016-12-01] MEDS ORDERED: PIPERACILLIN /TAZOBACTAM 3.375 G in IV D5W 50 ML IV ONE (08:00)
[2016-12-01] MEDS ORDERED: HYDR-4077 PO (08:58)
[2016-12-01] MEDS ORDERED: CLON0.1T PO (08:58)
[2016-12-01] MEDS ORDERED: VANCOMYCIN 1 GM in IV D5W 250 ML IV ONE (09:00)
[2016-12-01] MEDS ORDERED: AZITHROMYCIN 500 MG in IV D5W 250 ML IV ONE (09:00)
[2016-12-01 10:14] VITALS: BP 197/71
[2016-12-01 12:00] VITALS: BP 167/53
[2016-12-01] MEDS ORDERED: BUMETANIDE INJ 8 MG in IV NS 0.9% 48 ML IV ONE (15:00)
[2016-12-01] MEDS ORDERED: ZOLPIDEM TARTRATE 5 MG TABLET PO PRN (15:30)
[2016-12-01] MEDS ORDERED: MAGNESIUM HYDROXIDE 30 ML UDC PO PRN (15:30)
[2016-12-01] MEDS ORDERED: Z GUARD REMEDY 2 OZ OINT TP PRN (15:30)
[2016-12-01] MEDS ORDERED: MAG HYDROX/AL HYDROX/SIMETH 30 ML UDC PO PRN (15:30)
[2016-12-01] MEDS ORDERED: ONDANSETRON HCL/PF 4 MG/2 ML VIAL IVP PRN (15:30)
[2016-12-01] MEDS ORDERED: ACETAMINOPHEN 325 MG TABLET PO PRN (15:30)
[2016-12-01 16:00] VITALS: BP 182/53
[2016-12-01] MEDS ORDERED: CLONIDINE HCL 0.1 MG TABLET PO PRN (16:30)
[2016-12-01] MEDS ORDERED: SALINE NASAL SPRAY 0.65% 1 BOTTLE BOTTLE NS PRN (17:00)
[2016-12-01] MEDS: REPAGLINIDE 0.5 MG TABLET PO SCH (18:00)
[2016-12-01] MEDS: hydrALAZINE HCL 50 MG TABLET PO SCH (18:11)
[2016-12-01] MEDS ORDERED: oxyCODONE IR immediate release 5 MG CAPSULE PO PRN (18:30)
[2016-12-01] MEDS ORDERED: LEVOFLOXACIN 500 MG /D5W 100ML 500 MG in PREMIX 1 EA IV ONE (19:00)
[2016-12-01] MEDS ORDERED: FEE PK DOSING 1 MIN EA MC ONE (19:06)
[2016-12-01 20:00] VITALS: BP 158/55
[2016-12-01] MEDS: PIPERACILLIN /TAZOBACTAM 3.375 G in IV D5W 50 ML IV SCH (20:30)
[2016-12-01] MEDS: CARVEDILOL 12.5 MG TABLET PO SCH (20:58)
[2016-12-01] MEDS: BLOOD SUGAR DIAGNOSTIC 1 EACH STRIP IN SCH (21:56)
[2016-12-02] VITALS: BP 138/52
[2016-12-02] MEDS: PIPERACILLIN /TAZOBACTAM 3.375 G in IV D5W 50 ML IV SCH ×6 (00:21→23:42)
[2016-12-02 04:00] VITALS: BP 156/68
[2016-12-02] MEDS: VANCOMYCIN 1.25 GM in IV D5W 500 ML IV SCH (06:34)
[2016-12-02 06:51] LABS: BASOPHILS % (AUTO) 0.1 % (0.0-2.0); DIFF TOTAL % 100 %; EOSINOPHILS # (AUTO) 0.2 /CMM (0.0-0.7); EOSINOPHILS % (AUTO) 1.6 % (0.0-6.0); HEMATOCRIT 37 % (39-51); HEMOGLOBIN 11.7 g/dL (13.5-17.5); LYMPHOCYTES # (AUTO) 1.5 /CMM (0.8-4.8); LYMPHOCYTES % (AUTO) 11.5 % (20.0-44.0); MEAN CORPUSCULAR HEMOGLOBIN 26 PG (26.0-33.0); MEAN CORPUSCULAR HGB CONC 32 g/dl (31.0-36.0); MEAN CORPUSCULAR VOLUME 82 fL (80-96); MONOCYTES # (AUTO) 0.7 /CMM (0.1-1.30); MONOCYTES % (AUTO) 5.5 % (2.0-12.0); NEUTROPHILS # (AUTO) 10.4 /CMM (1.8-8.9); NEUTROPHILS % (AUTO) 81.3 % (43.0-81.0); PLATELET COUNT (AUTO) 279 /CMM (150-450); WHITE BLOOD COUNT (AUTO) 12.8 K/uL (4.3-11.0)
[2016-12-02 07:38] LABS: TROPONIN I 0.039 ng/mL (0.00-0.056)
[2016-12-02 07:45] LABS: ALBUMIN 2.4 g/dL (3.4-5.0); BILIRUBIN,TOTAL 0.4 mg/dL (0.2-1.0); CALCIUM, SERUM 8.3 mg/dL (8.5-10.1); CREATININE 2.2 mg/dL (0.6-1.3); PHOSPHORUS 4.1 mg/dL (2.5-4.9); POTASSIUM 3.5 mmol/L (3.5-5.1)
[2016-12-02] MEDS: BLOOD SUGAR DIAGNOSTIC 1 EACH STRIP IN SCH ×4 (07:52→21:46)
[2016-12-02 08:00] VITALS: BP 184/60
[2016-12-02] MEDS: PANTOPRAZOLE 40 MG TABLET.DR PO SCH (08:33)
[2016-12-02] MEDS: CLOPIDOGREL BISULFATE 75 MG TABLET PO SCH (08:33)
[2016-12-02] MEDS: FUROSEMIDE 40 MG/4 ML VIAL IV SCH (08:34)
[2016-12-02] MEDS: TAMSULOSIN 0.4 MG CAP.SR.24H PO SCH (08:35)
[2016-12-02] MEDS: ASPIRIN EC 81 MG TABLET.DR PO SCH (08:35)
[2016-12-02] MEDS: ATORVASTATIN 10 MG TABLET PO SCH (08:35)
[2016-12-02] MEDS: REPAGLINIDE 0.5 MG TABLET PO SCH ×3 (08:35→18:05)
[2016-12-02] MEDS: HYDROCODONE/APAP 5/325MG 1 EACH TABLET PO PRN (08:36)
[2016-12-02] MEDS: hydrALAZINE HCL 50 MG TABLET PO SCH ×3 (08:38→21:46)
[2016-12-02] MEDS: CARVEDILOL 12.5 MG TABLET PO SCH ×2 (08:39→21:46)
[2016-12-02 12:00] VITALS: BP 165/49
[2016-12-02] MEDS ORDERED: IV SET PRIMARY PUMP SET 1 EA INFUS.SET MC ONE ×2 (12:17→16:33)
[2016-12-02] MEDS ORDERED: LEVOFLOXACIN 500 MG /D5W 100ML 500 MG in PREMIX 1 EA IV SCH (15:30)
[2016-12-02 15:41] LABS: KETONES,URINE NEGATIVE (NEGATIVE); LEUKOCYTE ESTERASE ,URINE NEGATIVE (NEGATIVE); PH,URINE 5.5 (5.0-8.0)
[2016-12-02 15:48] LABS: ADD UA MICROSCOPIC YES
[2016-12-02 15:55] LABS: ADD URINE CULTURE NO; RBC,URINE 0-2 /HPF (0-2); WBC,URINE 0-2 /HPF (0-3)
[2016-12-02 16:00] VITALS: BP 171/56
[2016-12-02] MEDS: LEVOFLOXACIN 250 MG /D5W 50 ML 250 MG in PREMIX 1 EA IV SCH (16:56)
[2016-12-02] MEDS ORDERED: DEXTROSE 50%-WATER 50 ML DISP.SYRIN IV PRN (17:30)
[2016-12-02 20:00] VITALS: BP 151/61
[2016-12-02] MEDS: INSULIN REGULAR, HUMAN 100 UNIT/ML 3 ML VIAL SQ PRN (21:51)
[2016-12-02] MEDS ORDERED: SECONDARY IV SET 1 EA INFUS.SET MC ONE (23:29)
[2016-12-02] MEDS ORDERED: IV NS 0.9% 250 ML IV ONE (23:29)
[2016-12-03] VITALS: BP 148/43
[2016-12-03 04:00] VITALS: BP 146/42
[2016-12-03] MEDS: hydrALAZINE HCL 50 MG TABLET PO SCH ×3 (05:04→13:00)
[2016-12-03] MEDS: PIPERACILLIN /TAZOBACTAM 3.375 G in IV D5W 50 ML IV SCH ×3 (05:05→17:59)
[2016-12-03] MEDS ORDERED: SECONDARY IV SET 1 EA INFUS.SET MC ONE (05:46)
[2016-12-03] MEDS: VANCOMYCIN 1.25 GM in IV D5W 500 ML IV SCH (05:49)
[2016-12-03] MEDS: BLOOD SUGAR DIAGNOSTIC 1 EACH STRIP IN SCH ×4 (06:33→21:17)
[2016-12-03] MEDS: INSULIN REGULAR, HUMAN 100 UNIT/ML 3 ML VIAL SQ PRN ×3 (06:37→17:24)
[2016-12-03 07:54] LABS: CALCIUM, SERUM 8.5 mg/dL (8.5-10.1); CREATININE 2.6 mg/dL (0.6-1.3); POTASSIUM 3.3 mmol/L (3.5-5.1)
[2016-12-03 08:00] VITALS: BP 150/56
[2016-12-03] MEDS: CARVEDILOL 12.5 MG TABLET PO SCH ×2 (08:31→21:18)
[2016-12-03] MEDS: REPAGLINIDE 0.5 MG TABLET PO SCH ×3 (08:31→17:25)
[2016-12-03] MEDS: CLOPIDOGREL BISULFATE 75 MG TABLET PO SCH (08:31)
[2016-12-03] MEDS: ASPIRIN EC 81 MG TABLET.DR PO SCH (08:31)
[2016-12-03] MEDS: TAMSULOSIN 0.4 MG CAP.SR.24H PO SCH (08:31)
[2016-12-03] MEDS: FUROSEMIDE 40 MG/4 ML VIAL IV SCH (08:31)
[2016-12-03] MEDS: ATORVASTATIN 10 MG TABLET PO SCH (08:31)
[2016-12-03] MEDS: PANTOPRAZOLE 40 MG TABLET.DR PO SCH (08:31)
[2016-12-03] MEDS: HYDROCODONE/APAP 5/325MG 1 EACH TABLET PO PRN (10:07)
[2016-12-03 12:00] VITALS: BP 111/50
[2016-12-03 13:38] LABS: ABG BASE EXCESS 13.4 mmol/L; ABG HCO3 40.2 mmol/L; ABG PCO2 61.8 mmHg (35.0-45.0); ABG PH 7.431 (7.350-7.450); ABG PO2 76.4 mmHg (75.0-100.0); ALLEN TEST Pass; AaDO2 50.3 mmHg; O2Hb 93.2 % (94.0-97.0)
[2016-12-03] MEDS: LEVOFLOXACIN 250 MG /D5W 50 ML 250 MG in PREMIX 1 EA IV SCH (15:43)
[2016-12-03 16:00] VITALS: BP 140/56
[2016-12-03 20:00] VITALS: BP 153/70
[2016-12-04] VITALS: BP 154/62
[2016-12-04] MEDS: PIPERACILLIN /TAZOBACTAM 3.375 G in IV D5W 50 ML IV SCH ×4 (00:09→17:44)
[2016-12-04] MEDS ORDERED: SECONDARY IV SET 1 EA INFUS.SET MC ONE (00:15)
[2016-12-04 04:00] VITALS: BP 129/66
[2016-12-04] MEDS ORDERED: IV NS 0.9% 250 ML IV ONE (04:38)
[2016-12-04] MEDS: BLOOD SUGAR DIAGNOSTIC 1 EACH STRIP IN SCH ×4 (06:47→22:25)
[2016-12-04] MEDS: INSULIN REGULAR, HUMAN 100 UNIT/ML 3 ML VIAL SQ PRN ×2 (06:49→12:10)
[2016-12-04 06:54] LABS: CALCIUM, SERUM 8.7 mg/dL (8.5-10.1); POTASSIUM 3.3 mmol/L (3.5-5.1)
[2016-12-04 08:00] VITALS: BP 153/49
[2016-12-04] MEDS: PANTOPRAZOLE 40 MG TABLET.DR PO SCH (08:14)
[2016-12-04] MEDS: REPAGLINIDE 0.5 MG TABLET PO SCH ×3 (08:15→17:44)
[2016-12-04] MEDS: ATORVASTATIN 10 MG TABLET PO SCH (08:25)
[2016-12-04] MEDS: TAMSULOSIN 0.4 MG CAP.SR.24H PO SCH (08:26)
[2016-12-04] MEDS: ASPIRIN EC 81 MG TABLET.DR PO SCH (08:26)
[2016-12-04] MEDS: CLOPIDOGREL BISULFATE 75 MG TABLET PO SCH (08:27)
[2016-12-04] MEDS: CARVEDILOL 12.5 MG TABLET PO SCH ×2 (08:29→21:33)
[2016-12-04 12:00] VITALS: BP 122/50
[2016-12-04] MEDS: ALBUTEROL HALF STRENGTH 1.25 MG/3 ML VIAL.NEB NEB SCH ×2 (13:22→19:38)
[2016-12-04] MEDS: IPRATROPIUM NEB FS 0.5 MG/2.5 ML AMPUL.NEB NEB SCH ×2 (13:22→19:38)
[2016-12-04] MEDS: LEVOFLOXACIN 250 MG /D5W 50 ML 250 MG in PREMIX 1 EA IV SCH (15:57)
[2016-12-04 16:00] VITALS: BP 152/53
[2016-12-04] MEDS ORDERED: VANCOMYCIN 1.25 GM in IV D5W 500 ML IV SCH (18:00)
[2016-12-04 20:00] VITALS: BP 138/54
[2016-12-05] VITALS: BP 145/47
[2016-12-05] MEDS ORDERED: ZOLPIDEM TARTRATE 5 MG TABLET ONE
[2016-12-05] MEDS: PIPERACILLIN /TAZOBACTAM 3.375 G in IV D5W 50 ML IV SCH ×4 (00:11→17:40)
[2016-12-05] MEDS: ZOLPIDEM TARTRATE 5 MG TABLET PO PRN (00:46)
[2016-12-05] MEDS: ALBUTEROL HALF STRENGTH 1.25 MG/3 ML VIAL.NEB NEB SCH ×4 (01:30→19:22)
[2016-12-05] MEDS: IPRATROPIUM NEB FS 0.5 MG/2.5 ML AMPUL.NEB NEB SCH ×4 (01:30→19:22)
[2016-12-05 04:00] VITALS: BP 143/41
[2016-12-05] MEDS ORDERED: VANCOMYCIN 1.25 GM in IV D5W 500 ML IV SCH (07:00)
[2016-12-05] MEDS: BLOOD SUGAR DIAGNOSTIC 1 EACH STRIP IN SCH ×4 (07:03→21:36)
[2016-12-05 07:17] LABS: CALCIUM, SERUM 8.5 mg/dL (8.5-10.1); CREATININE 3.2 mg/dL (0.6-1.3); POTASSIUM 3.5 mmol/L (3.5-5.1)
[2016-12-05 08:00] VITALS: BP 147/73
[2016-12-05] MEDS: ATORVASTATIN 10 MG TABLET PO SCH (08:11)
[2016-12-05] MEDS: ASPIRIN EC 81 MG TABLET.DR PO SCH (08:11)
[2016-12-05] MEDS: REPAGLINIDE 0.5 MG TABLET PO SCH ×3 (08:11→17:40)
[2016-12-05] MEDS: TAMSULOSIN 0.4 MG CAP.SR.24H PO SCH (08:13)
[2016-12-05] MEDS: PANTOPRAZOLE 40 MG TABLET.DR PO SCH (08:13)
[2016-12-05] MEDS: CLOPIDOGREL BISULFATE 75 MG TABLET PO SCH (08:13)
[2016-12-05] MEDS: CARVEDILOL 12.5 MG TABLET PO SCH ×2 (08:13→21:37)
[2016-12-05] MEDS: LEVOFLOXACIN 250 MG /D5W 50 ML 250 MG in PREMIX 1 EA IV SCH (15:28)
[2016-12-05 16:00] VITALS: BP 145/61
[2016-12-05 18:00] VITALS: BP 140/62
[2016-12-05] MEDS ORDERED: VANCOMYCIN 1 GM in IV D5W 250 ML IV SCH (18:00)
[2016-12-05 20:00] VITALS: BP 156/51
[2016-12-05] MEDS: INSULIN REGULAR, HUMAN 100 UNIT/ML 3 ML VIAL SQ PRN (21:40)
[2016-12-06] VITALS (7 sets, daily range): BP systolic 138–178; BP diastolic 39–76
[2016-12-06] MEDS: PIPERACILLIN /TAZOBACTAM 3.375 G in IV D5W 50 ML IV SCH ×3 (00:03→12:22)
[2016-12-06] MEDS: ZOLPIDEM TARTRATE 5 MG TABLET PO PRN (00:03)
[2016-12-06] MEDS: ALBUTEROL HALF STRENGTH 1.25 MG/3 ML VIAL.NEB NEB SCH ×3 (00:52→14:06)
[2016-12-06] MEDS: IPRATROPIUM NEB FS 0.5 MG/2.5 ML AMPUL.NEB NEB SCH ×3 (00:52→14:06)
[2016-12-06] MEDS: BLOOD SUGAR DIAGNOSTIC 1 EACH STRIP IN SCH ×2 (06:32→12:22)
[2016-12-06 07:04] LABS: CALCIUM, SERUM 8.4 mg/dL (8.5-10.1); POTASSIUM 3.6 mmol/L (3.5-5.1)
[2016-12-06] MEDS: PANTOPRAZOLE 40 MG TABLET.DR PO SCH (09:05)
[2016-12-06] MEDS: CLOPIDOGREL BISULFATE 75 MG TABLET PO SCH (09:06)
[2016-12-06] MEDS: TAMSULOSIN 0.4 MG CAP.SR.24H PO SCH (09:06)
[2016-12-06] MEDS: ATORVASTATIN 10 MG TABLET PO SCH (09:06)
[2016-12-06] MEDS: CARVEDILOL 12.5 MG TABLET PO SCH (09:06)
[2016-12-06] MEDS: ASPIRIN EC 81 MG TABLET.DR PO SCH (09:06)
[2016-12-06] MEDS: REPAGLINIDE 0.5 MG TABLET PO SCH ×2 (09:08→12:24)
[2016-12-06] MEDS: INSULIN REGULAR, HUMAN 100 UNIT/ML 3 ML VIAL SQ PRN (12:25)
[2016-12-06] MEDS ORDERED: hydrALAZINE HCL 10 MG TABLET PO PRN (14:00)
[2016-12-06] MEDS ORDERED: ALBU1.25 NEB (15:00)
== END 2016-12-06 16:38 | disposition home or self-care (01) | DRG 291 ==
LOC: ER 06:26 → TELE-TD 09:16 → TELE1 15:17 → MEDSG1 12-05 11:12
PROVIDERS: ADMIT Family Medicine; ATTEND Family Medicine
PROC: 05H533Z Insertion of Infusion Device into Right Subclavian Vein, Percutaneous Approach (ICD-10-PCS; principal; 2016-12-03)
DX: I13.0 Hypertensive heart and chronic kidney disease with heart failure and stage 1 through stage 4 chronic kidney disease, or unspecified chronic kidney disease (principal); N17.0 Acute kidney failure with tubular necrosis; I50.33 Acute on chronic diastolic (congestive) heart failure; J96.02 Acute respiratory failure with hypercapnia; J96.01 Acute respiratory failure with hypoxia; E66.2 Morbid (severe) obesity with alveolar hypoventilation; J44.1 Chronic obstructive pulmonary disease with (acute) exacerbation; J44.0 Chronic obstructive pulmonary disease with (acute) lower respiratory infection; N18.9 Chronic kidney disease, unspecified; E11.22 Type 2 diabetes mellitus with diabetic chronic kidney disease; E78.5 Hyperlipidemia, unspecified; F41.9 Anxiety disorder, unspecified; F32.9 Major depressive disorder, single episode, unspecified; I25.10 Atherosclerotic heart disease of native coronary artery without angina pectoris; Z95.1 Presence of aortocoronary bypass graft; Z91.19 Patient's noncompliance with other medical treatment and regimen; Z86.73 Personal history of transient ischemic attack (TIA), and cerebral infarction without residual deficits; D72.829 Elevated white blood cell count, unspecified; N40.0 Benign prostatic hyperplasia without lower urinary tract symptoms; Z87.891 Personal history of nicotine dependence; J20.9 Acute bronchitis, unspecified; Z68.36 Body mass index [BMI] 36.0-36.9, adult
CPT/HCPCS: 36415; 36600; 71010-TC; 80048-TC; 80053-TC; 80061-TC; 80202-TC; 81000-TC; 82962-TC; 83605-TC; 83735-TC; 83880; 84100-TC; 84484-TC; 85025-TC; 87040-TC; 87081-TC; 94799-TC; 97001-TC; A4216; A4606; J0456; J1815; J1940; J1956; J2543; J3370; J3490; J7050; J7060; Z7610

== ENCOUNTER 2016-12-09 01:19 | Inpatient (IN) | payer MEDICARE, OTHER ==
[~2016-12-09] VITALS: Ht 188 cm; Wt 106.1 kg
[2016-12-09] VITALS (25 sets, daily range): BP systolic 123–174; BP diastolic 52–97
[~2016-12-09 01:19] MED LIST changes: +ALBU1.25 NEB; +CLON0.1T PO; -FENO145T20 PO; +HYDR-4077 PO; -PRED10TA PO
[2016-12-09] MEDS ORDERED: NITROGLYCERIN 0.4 MG/TAB BOTTLE SL ONE (01:30)
[2016-12-09] MEDS ORDERED: FUROSEMIDE 40 MG/4 ML VIAL IV ONE (01:30)
[2016-12-09] MEDS ORDERED: NITROGLYCERIN PACKET 1 GM PACKET TD ONE (01:30)
[2016-12-09] MEDS ORDERED: ENALAPRILAT DIHYD. (2.5MG/ML) 1.25 MG/ML VIAL IV ONE ×2 (01:30→01:38)
[2016-12-09] MEDS ORDERED: NITROGLYCERIN PACKET 1 GM PACKET ONE ×2 (01:38→04:58)
[2016-12-09] MEDS ORDERED: NITROGLYCERIN 0.4 MG/TAB BOTTLE ONE (01:38)
[2016-12-09] MEDS ORDERED: FUROSEMIDE 40 MG/4 ML VIAL ONE (01:54)
[2016-12-09 02:00] LABS: BASOPHILS % (AUTO) 0.4 % (0.0-2.0); DIFF TOTAL % 100 %; EOSINOPHILS # (AUTO) 0.3 /CMM (0.0-0.7); EOSINOPHILS % (AUTO) 2.2 % (0.0-6.0); HEMATOCRIT 34 % (39-51); HEMOGLOBIN 10.5 g/dL (13.5-17.5); LYMPHOCYTES # (AUTO) 3.1 /CMM (0.8-4.8); LYMPHOCYTES % (AUTO) 25.8 % (20.0-44.0); MEAN CORPUSCULAR HEMOGLOBIN 26 PG (26.0-33.0); MEAN CORPUSCULAR HGB CONC 31 g/dl (31.0-36.0); MEAN CORPUSCULAR VOLUME 82 fL (80-96); MONOCYTES % (AUTO) 8.5 % (2.0-12.0); NEUTROPHILS # (AUTO) 7.6 /CMM (1.8-8.9); NEUTROPHILS % (AUTO) 63.1 % (43.0-81.0); PLATELET COUNT (AUTO) 248 /CMM (150-450); RED BLOOD CELL COUNT(AUTO) 4.12 MIL/uL (4.5-6.0)
[2016-12-09 02:06] LABS: INR 0.94 (0.87-1.13); PROTHROMBIN TIME 10.1 SECS (9.5-12.7)
[2016-12-09 02:10] LABS: LACTIC ACID 0.6 mmol/L (0.4-2.0)
[2016-12-09 02:11] LABS: TROPONIN I 0.153 ng/mL (0.00-0.056)
[2016-12-09 02:19] LABS: ALBUMIN 2.7 g/dL (3.4-5.0); BILIRUBIN,DIRECT 0.1 mg/dL (0.0-0.2); BILIRUBIN,TOTAL 0.3 mg/dL (0.2-1.0); CREATININE 2.4 mg/dL (0.6-1.3); INDIRECT BILIRUBIN 0.2 mg/dL (0.0-1.1); TOTAL PROTEIN, SERUM 6.2 g/dL (6.4-8.2)
[2016-12-09] MEDS ORDERED: ONDANSETRON HCL/PF 4 MG/2 ML VIAL IVP PRN (03:00)
[2016-12-09] MEDS ORDERED: ACETAMINOPHEN 325 MG TABLET PO PRN (03:00)
[2016-12-09] MEDS ORDERED: ACETAMINOPHEN 650 MG/SUPP.RECT RC PRN (03:00)
[2016-12-09 03:14] LABS: ABG BASE EXCESS 8.7 mmol/L; ABG HCO3 38.2 mmol/L; ABG PCO2 85.1 mmHg (35.0-45.0); ABG PO2 98.3 mmHg (75.0-100.0); ABG TOTAL HEMOGLOBIN 11.2 G/dL (13.5-18.0); ALLEN TEST Pass; AaDO2 235.9 mmHg; O2Hb 95.1 % (94.0-97.0)
[2016-12-09 03:15] LABS: ABG HCO3 29.7 mmol/L; ABG PH 7.291 (7.350-7.450); ABG PO2 91.3 mmHg (75.0-100.0); ABG TOTAL HEMOGLOBIN 10.8 G/dL (13.5-18.0); ALLEN TEST Pass; AaDO2 267.2 mmHg; O2Hb 94.6 % (94.0-97.0)
[2016-12-09] MEDS ORDERED: IPRATROPIUM NEB FS 0.5 MG/2.5 ML AMPUL.NEB NEB PRN (03:30)
[2016-12-09] MEDS ORDERED: ALBUTEROL FS 2.5 MG/0.5 ML VIAL.NEB NEB PRN (03:30)
[2016-12-09 03:58] LABS: PHOSPHORUS 4.2 mg/dL (2.5-4.9)
[2016-12-09] MEDS ORDERED: ASPIRIN 300 MG/SUPP.RECT RC ONE ×2 (04:00→04:26)
[2016-12-09] MEDS ORDERED: NITROGLYCERIN PACKET 1 GM PACKET TOP SCH (06:00)
[2016-12-09 07:32] LABS: ABG BASE EXCESS 12.8 mmol/L; ABG PCO2 76.9 mmHg (35.0-45.0); ABG PH 7.345 (7.350-7.450); ABG PO2 128.8 mmHg (75.0-100.0); ABG TOTAL HEMOGLOBIN 10.3 G/dL (13.5-18.0); ALLEN TEST Pass; AaDO2 360.9 mmHg; O2Hb 95.8 % (94.0-97.0)
[2016-12-09] MEDS: PANTOPRAZOLE 40 MG VIAL IV SCH (08:52)
[2016-12-09] MEDS: HEPARIN SODIUM, PORCINE 5000 UNITS/1 ML VIAL SQ SCH ×2 (08:53→21:05)
[2016-12-09] MEDS: methylPREDNISolone SOD SUCC 125 MG/2ML VIAL IV SCH ×2 (10:39→16:07)
[2016-12-09] MEDS: IPRATROPIUM NEB FS 0.5 MG/2.5 ML AMPUL.NEB NEB SCH ×3 (10:54→20:07)
[2016-12-09] MEDS: ALBUTEROL HALF STRENGTH 1.25 MG/3 ML VIAL.NEB NEB SCH ×3 (10:55→20:07)
[2016-12-09] MEDS ORDERED: Z GUARD REMEDY 2 OZ OINT TP PRN (12:00)
[2016-12-09] MEDS: Z GUARD REMEDY 2 OZ OINT TP SCH ×2 (12:30→16:07)
[2016-12-09] MEDS ORDERED: DEXTROSE 50%-WATER 50 ML DISP.SYRIN IV PRN (12:30)
[2016-12-09] MEDS: FUROSEMIDE 40 MG/4 ML VIAL IV SCH ×2 (12:30→16:07)
[2016-12-09] MEDS: BLOOD SUGAR DIAGNOSTIC 1 EACH STRIP IN SCH ×2 (12:30→17:20)
[2016-12-09] MEDS: NITROGLYCERIN 30 GM TUBE TP SCH ×2 (13:00→17:20)
[2016-12-09] MEDS: ASPIRIN EC 81 MG TABLET.DR PO SCH (16:32)
[2016-12-09] MEDS: INSULIN REGULAR, HUMAN 100 UNIT/ML 3 ML VIAL SQ PRN (17:24)
[2016-12-09] MEDS ORDERED: BLOOD SUGAR DIAGNOSTIC 1 EACH STRIP IN SCH (18:00)
[2016-12-09] MEDS ORDERED: hydrALAZINE HCL IV 20 MG VIAL IV PRN (19:30)
[2016-12-09] MEDS: hydrALAZINE HCL 50 MG TABLET PO SCH (21:04)
[2016-12-09] MEDS: ATORVASTATIN 10 MG TABLET PO SCH (22:01)
[2016-12-10] VITALS (27 sets, daily range): BP systolic 119–168; BP diastolic 48–88
[2016-12-10] MEDS: BLOOD SUGAR DIAGNOSTIC 1 EACH STRIP IN SCH ×2 (00:01→05:48)
[2016-12-10] MEDS: INSULIN REGULAR, HUMAN 100 UNIT/ML 3 ML VIAL SQ PRN ×4 (00:02→17:33)
[2016-12-10] MEDS: NITROGLYCERIN 30 GM TUBE TP SCH ×5 (00:03→23:28)
[2016-12-10] MEDS: IPRATROPIUM NEB FS 0.5 MG/2.5 ML AMPUL.NEB NEB SCH ×7 (00:07→23:39)
[2016-12-10] MEDS: ALBUTEROL HALF STRENGTH 1.25 MG/3 ML VIAL.NEB NEB SCH ×7 (00:07→23:39)
[2016-12-10 05:26] LABS: CALCIUM, SERUM 8.5 mg/dL (8.5-10.1); CREATININE 2.6 mg/dL (0.6-1.3); PHOSPHORUS 4.4 mg/dL (2.5-4.9); POTASSIUM 4.1 mmol/L (3.5-5.1)
[2016-12-10] MEDS: hydrALAZINE HCL 50 MG TABLET PO SCH ×3 (05:27→21:44)
[2016-12-10 05:34] LABS: BASOPHILS % (AUTO) 0.3 % (0.0-2.0); DIFF TOTAL % 100 %; HEMATOCRIT 29 % (39-51); HEMOGLOBIN 9.5 g/dL (13.5-17.5); LYMPHOCYTES # (AUTO) 1.3 /CMM (0.8-4.8); LYMPHOCYTES % (AUTO) 13.8 % (20.0-44.0); MEAN CORPUSCULAR HEMOGLOBIN 26 PG (26.0-33.0); MEAN CORPUSCULAR HGB CONC 32 g/dl (31.0-36.0); MEAN CORPUSCULAR VOLUME 81 fL (80-96); MONOCYTES # (AUTO) 0.4 /CMM (0.1-1.30); MONOCYTES % (AUTO) 4.6 % (2.0-12.0); NEUTROPHILS # (AUTO) 7.9 /CMM (1.8-8.9); NEUTROPHILS % (AUTO) 81.3 % (43.0-81.0); PLATELET COUNT (AUTO) 274 /CMM (150-450); RED BLOOD CELL COUNT(AUTO) 3.64 MIL/uL (4.5-6.0); WHITE BLOOD COUNT (AUTO) 9.7 K/uL (4.3-11.0)
[2016-12-10] MEDS: methylPREDNISolone SOD SUCC 125 MG/2ML VIAL IV SCH ×2 (08:29→16:30)
[2016-12-10] MEDS: BUMETANIDE INJ 0.25 MG/ML VIAL IV SCH ×2 (08:29→16:30)
[2016-12-10] MEDS: CLOPIDOGREL BISULFATE 75 MG TABLET PO SCH (08:29)
[2016-12-10] MEDS: PANTOPRAZOLE 40 MG VIAL IV SCH (08:29)
[2016-12-10] MEDS: ASPIRIN EC 81 MG TABLET.DR PO SCH (08:30)
[2016-12-10] MEDS: Z GUARD REMEDY 2 OZ OINT TP SCH ×2 (08:30→16:30)
[2016-12-10] MEDS: HEPARIN SODIUM, PORCINE 5000 UNITS/1 ML VIAL SQ SCH ×2 (08:30→21:44)
[2016-12-10] MEDS: METOLAZONE 2.5 MG TABLET PO SCH (09:47)
[2016-12-10] MEDS: BLOOD SUGAR DIAGNOSTIC 1 EACH STRIP VI SCH ×3 (11:08→21:45)
[2016-12-10] MEDS ORDERED: DEXTROSE 50%-WATER 50 ML DISP.SYRIN IV PRN (11:30)
[2016-12-10] MEDS ORDERED: hydrALAZINE HCL 50 MG TABLET PO SCH (12:00)
[2016-12-10] MEDS ORDERED: REPAGLINIDE 0.5 MG TABLET PO SCH (13:00)
[2016-12-10] MEDS: ATORVASTATIN 10 MG TABLET PO SCH (21:44)
[2016-12-10] MEDS: *INSULIN REGULAR(HUMULIN R)HUM 100 UNIT/ML VIAL SQ PRN (21:55)
[2016-12-11] VITALS (28 sets, daily range): BP systolic 136–184; BP diastolic 53–94
[2016-12-11] MEDS: ALBUTEROL HALF STRENGTH 1.25 MG/3 ML VIAL.NEB NEB SCH ×6 (03:29→23:35)
[2016-12-11] MEDS: IPRATROPIUM NEB FS 0.5 MG/2.5 ML AMPUL.NEB NEB SCH ×6 (03:29→23:35)
[2016-12-11] MEDS: hydrALAZINE HCL 50 MG TABLET PO SCH ×3 (05:38→20:32)
[2016-12-11] MEDS: NITROGLYCERIN 30 GM TUBE TP SCH ×4 (05:41→23:39)
[2016-12-11] MEDS: BLOOD SUGAR DIAGNOSTIC 1 EACH STRIP VI SCH ×4 (07:53→22:51)
[2016-12-11] MEDS: INSULIN REGULAR, HUMAN 100 UNIT/ML 3 ML VIAL SQ PRN ×3 (07:55→17:28)
[2016-12-11] MEDS: TAMSULOSIN 0.4 MG CAP.SR.24H PO SCH (08:33)
[2016-12-11] MEDS: ASPIRIN EC 81 MG TABLET.DR PO SCH (08:33)
[2016-12-11] MEDS: PANTOPRAZOLE 40 MG VIAL IV SCH (08:33)
[2016-12-11] MEDS: CLOPIDOGREL BISULFATE 75 MG TABLET PO SCH (08:33)
[2016-12-11] MEDS: BUMETANIDE INJ 0.25 MG/ML VIAL IV SCH ×2 (08:33→16:44)
[2016-12-11] MEDS: METOLAZONE 2.5 MG TABLET PO SCH (08:33)
[2016-12-11] MEDS: methylPREDNISolone SOD SUCC 125 MG/2ML VIAL IV SCH ×2 (08:33→16:44)
[2016-12-11] MEDS: Z GUARD REMEDY 2 OZ OINT TP SCH ×2 (08:34→16:44)
[2016-12-11] MEDS: HEPARIN SODIUM, PORCINE 5000 UNITS/1 ML VIAL SQ SCH ×3 (08:35→20:38)
[2016-12-11 10:00] LABS: CALCIUM, SERUM 8.4 mg/dL (8.5-10.1); PHOSPHORUS 4.2 mg/dL (2.5-4.9)
[2016-12-11 11:11] LABS: ABG BASE EXCESS 10.4 mmol/L; ABG HCO3 37.6 mmol/L; ABG PCO2 65.4 mmHg (35.0-45.0); ABG PH 7.377 (7.350-7.450); ABG PO2 72.8 mmHg (75.0-100.0); ABG TOTAL HEMOGLOBIN 10.5 G/dL (13.5-18.0); ALLEN TEST Pass; AaDO2 78.8 mmHg; O2Hb 91.9 % (94.0-97.0)
[2016-12-11] MEDS: ATORVASTATIN 10 MG TABLET PO SCH (22:43)
[2016-12-11] MEDS: *INSULIN REGULAR(HUMULIN R)HUM 100 UNIT/ML VIAL SQ PRN (22:53)
[2016-12-11] MEDS ORDERED: ZOLPIDEM TARTRATE 5 MG TABLET ONE (23:57)
[2016-12-12] VITALS (23 sets, daily range): BP systolic 137–170; BP diastolic 52–118
[2016-12-12] MEDS ORDERED: ZOLPIDEM TARTRATE 5 MG TABLET PO PRN
[2016-12-12] MEDS: ALBUTEROL HALF STRENGTH 1.25 MG/3 ML VIAL.NEB NEB SCH ×6 (03:24→23:24)
[2016-12-12] MEDS: IPRATROPIUM NEB FS 0.5 MG/2.5 ML AMPUL.NEB NEB SCH ×6 (03:24→23:24)
[2016-12-12 04:50] LABS: BASOPHILS # (AUTO) 0.1 /CMM (0.0-0.2); BASOPHILS % (AUTO) 0.4 % (0.0-2.0); DIFF TOTAL % 100 %; EOSINOPHILS % (AUTO) 0.1 % (0.0-6.0); HEMATOCRIT 32 % (39-51); LYMPHOCYTES # (AUTO) 1.9 /CMM (0.8-4.8); MEAN CORPUSCULAR HEMOGLOBIN 26 PG (26.0-33.0); MEAN CORPUSCULAR HGB CONC 31 g/dl (31.0-36.0); MEAN CORPUSCULAR VOLUME 81 fL (80-96); MONOCYTES # (AUTO) 0.3 /CMM (0.1-1.30); MONOCYTES % (AUTO) 1.7 % (2.0-12.0); NEUTROPHILS # (AUTO) 14.9 /CMM (1.8-8.9); NEUTROPHILS % (AUTO) 86.8 % (43.0-81.0); PLATELET COUNT (AUTO) 350 /CMM (150-450); RED BLOOD CELL COUNT(AUTO) 3.93 MIL/uL (4.5-6.0); WHITE BLOOD COUNT (AUTO) 17.2 K/uL (4.3-11.0)
[2016-12-12 04:57] LABS: CALCIUM, SERUM 8.8 mg/dL (8.5-10.1); CREATININE 3.2 mg/dL (0.6-1.3); PHOSPHORUS 5.1 mg/dL (2.5-4.9); POTASSIUM 4.1 mmol/L (3.5-5.1)
[2016-12-12] MEDS: hydrALAZINE HCL 50 MG TABLET PO SCH ×3 (05:12→21:55)
[2016-12-12] MEDS: NITROGLYCERIN 30 GM TUBE TP SCH ×4 (05:34→23:35)
[2016-12-12] MEDS: BLOOD SUGAR DIAGNOSTIC 1 EACH STRIP VI SCH ×4 (07:17→23:19)
[2016-12-12] MEDS: CLOPIDOGREL BISULFATE 75 MG TABLET PO SCH (08:17)
[2016-12-12] MEDS: methylPREDNISolone SOD SUCC 125 MG/2ML VIAL IV SCH ×2 (08:19→16:24)
[2016-12-12] MEDS: PANTOPRAZOLE 40 MG VIAL IV SCH (08:20)
[2016-12-12] MEDS: Z GUARD REMEDY 2 OZ OINT TP SCH ×2 (08:20→16:24)
[2016-12-12] MEDS: ASPIRIN EC 81 MG TABLET.DR PO SCH (08:20)
[2016-12-12] MEDS: TAMSULOSIN 0.4 MG CAP.SR.24H PO SCH (08:20)
[2016-12-12] MEDS: BUMETANIDE INJ 0.25 MG/ML VIAL IV SCH ×2 (08:20→16:24)
[2016-12-12] MEDS: INSULIN REGULAR, HUMAN 100 UNIT/ML 3 ML VIAL SQ PRN ×3 (08:22→17:29)
[2016-12-12] MEDS: HEPARIN SODIUM, PORCINE 5000 UNITS/1 ML VIAL SQ SCH (08:23)
[2016-12-12] MEDS ORDERED: IV SET PRIMARY PUMP SET 1 EA INFUS.SET MC ONE (08:49)
[2016-12-12] MEDS ORDERED: PRED10TA PO (14:32)
[2016-12-12] MEDS ORDERED: Hydralazine Hcl PO (14:32)
[2016-12-12] MEDS ORDERED: TIOT18CA3 INH (14:32)
[2016-12-12] MEDS ORDERED: PRED20TA PO (14:32)
[2016-12-12] MEDS ORDERED: PRED5TAB PO (14:32)
[2016-12-12] MEDS ORDERED: FURO-144 PO (14:32)
[2016-12-12] MEDS ORDERED: FLUT1DIS5 IH (14:32)
[2016-12-12] MEDS: ATORVASTATIN 10 MG TABLET PO SCH (21:53)
[2016-12-12] MEDS: *INSULIN REGULAR(HUMULIN R)HUM 100 UNIT/ML VIAL SQ PRN (23:31)
[2016-12-13] VITALS (7 sets, daily range): BP systolic 140–158; BP diastolic 52–78
[2016-12-13] MEDS: IPRATROPIUM NEB FS 0.5 MG/2.5 ML AMPUL.NEB NEB SCH ×3 (03:23→11:30)
[2016-12-13] MEDS: ALBUTEROL HALF STRENGTH 1.25 MG/3 ML VIAL.NEB NEB SCH ×3 (03:23→11:30)
[2016-12-13] MEDS: hydrALAZINE HCL 50 MG TABLET PO SCH (04:57)
[2016-12-13] MEDS: NITROGLYCERIN 30 GM TUBE TP SCH ×2 (05:45→12:02)
[2016-12-13] MEDS: BUMETANIDE INJ 0.25 MG/ML VIAL IV SCH (08:36)
[2016-12-13] MEDS: TAMSULOSIN 0.4 MG CAP.SR.24H PO SCH (08:37)
[2016-12-13] MEDS: CLOPIDOGREL BISULFATE 75 MG TABLET PO SCH (08:37)
[2016-12-13] MEDS: methylPREDNISolone SOD SUCC 125 MG/2ML VIAL IV SCH (08:38)
[2016-12-13] MEDS: ASPIRIN EC 81 MG TABLET.DR PO SCH (08:38)
[2016-12-13] MEDS: Z GUARD REMEDY 2 OZ OINT TP SCH (08:38)
[2016-12-13] MEDS: BLOOD SUGAR DIAGNOSTIC 1 EACH STRIP VI SCH ×2 (08:38→12:02)
[2016-12-13] MEDS: PANTOPRAZOLE 40 MG VIAL IV SCH (08:38)
[2016-12-13 11:07] LABS: CALCIUM, SERUM 8.1 mg/dL (8.5-10.1); CREATININE 3.3 mg/dL (0.6-1.3); POTASSIUM 3.6 mmol/L (3.5-5.1)
[2016-12-13] MEDS: INSULIN REGULAR, HUMAN 100 UNIT/ML 3 ML VIAL SQ PRN (12:02)
== END 2016-12-13 12:45 | disposition home health service (06) | DRG 280 ==
LOC: ER 01:21 → ICU 03:06 → TELE 12-12 18:51 → MED 12-13 09:27
PROVIDERS: ADMIT Nurse Practitioner Acute Care; ATTEND Nurse Practitioner Acute Care
PROC: 5A09357 Assistance with Respiratory Ventilation, Less than 24 Consecutive Hours, Continuous Positive Airway Pressure (ICD-10-PCS; principal; 2016-12-09)
DX: I13.0 Hypertensive heart and chronic kidney disease with heart failure and stage 1 through stage 4 chronic kidney disease, or unspecified chronic kidney disease (principal); I50.33 Acute on chronic diastolic (congestive) heart failure; I21.4 Non-ST elevation (NSTEMI) myocardial infarction; J96.01 Acute respiratory failure with hypoxia; J96.02 Acute respiratory failure with hypercapnia; E66.2 Morbid (severe) obesity with alveolar hypoventilation; N17.9 Acute kidney failure, unspecified; J44.1 Chronic obstructive pulmonary disease with (acute) exacerbation; D72.829 Elevated white blood cell count, unspecified; E11.22 Type 2 diabetes mellitus with diabetic chronic kidney disease; E78.5 Hyperlipidemia, unspecified; E88.81 Metabolic syndrome and other insulin resistance; I25.10 Atherosclerotic heart disease of native coronary artery without angina pectoris; N18.9 Chronic kidney disease, unspecified; N40.0 Benign prostatic hyperplasia without lower urinary tract symptoms; Z95.1 Presence of aortocoronary bypass graft; Z86.73 Personal history of transient ischemic attack (TIA), and cerebral infarction without residual deficits; Z68.30 Body mass index [BMI] 30.0-30.9, adult; D63.8 Anemia in other chronic diseases classified elsewhere
CPT/HCPCS: 36415; 36600; 71010-TC; 80048-TC; 80076-TC; 82140-TC; 82962-TC; 83605-TC; 83735-TC; 83880; 84100-TC; 84484-TC; 85025-TC; 85730-TC; 87040-TC; 87081-TC; 94799-TC; 99082-TC; A4606; C9113; J0360; J1644; J1815; J1940; J2930; J3490; Z7610

== ENCOUNTER 2018-08-11 16:37 | Emergency (ER) | payer MEDICARE, OTHER ==
[~2018-08-11] VITALS: Ht 167.6 cm; Wt 103.0 kg
[~2018-08-11 16:37] MED LIST changes: +ASPI-1152 PO; -ASPI-991 PO; +CLOP75TA15 PO; -CLOP75TA2 PO; +FLUT1DIS5 IH; +FURO-144 PO; -HYDR-4077 PO; +Hydralazine Hcl PO; +PRED10TA PO; +PRED20TA PO; +PRED5TAB PO; +TIOT18CA3 INH
[2018-08-11 17:26] VITALS: BP 152/78
[2018-08-11] MEDS ORDERED: TDAP [DIPH/PERTUSSIS/TET] 0.5 ML VIAL IM ONE ×3 (17:44→18:00)
== END 2018-08-11 18:33 | disposition home or self-care (01) ==
LOC: ER 16:40
DX: S60.112A Contusion of left thumb with damage to nail, initial encounter (principal); E11.9 Type 2 diabetes mellitus without complications; I11.0 Hypertensive heart disease with heart failure; I50.9 Heart failure, unspecified; J45.909 Unspecified asthma, uncomplicated; G89.29 Other chronic pain; Z90.49 Acquired absence of other specified parts of digestive tract; Z79.82 Long term (current) use of aspirin; Z23 Encounter for immunization; Z95.1 Presence of aortocoronary bypass graft; Z95.5 Presence of coronary angioplasty implant and graft; W23.0XXA Caught, crushed, jammed, or pinched between moving objects, initial encounter; Y93.89 Activity, other specified; Y92.89 Other specified places as the place of occurrence of the external cause; Y99.8 Other external cause status
CPT/HCPCS: 11740; 73140; 90471; 90715; 99284; A4606; A6402; Z7610

== ENCOUNTER 2019-01-17 02:38 | Inpatient (IN) | payer MEDICARE, OTHER ==
[2019-01-17] VITALS (16 sets, daily range): BP systolic 129–161; BP diastolic 53–78
[~2019-01-17] VITALS: Ht 167.6 cm; Wt 99.3 kg
[~2019-01-17 02:38] MED LIST changes: +AZIT500T4 PO; +METH4TAB3 PO; -PRED10TA PO; -PRED20TA PO; -PRED5TAB PO
--- NOTE | 2019-01-17 02:40 | NUR ---
Pt BIBRA for low saturation and SOB, in the low 80s, pt was found by . Pt was put on CPAP en route and given 3 sprays of Nitro. Pt dyspnic and tachypnic upon arrival. Pt put on the hall monitor and pulse ox. Pt saturating 99%. Pending eval from ER MD. Pt family at bedside.
--- NOTE | 2019-01-17 02:40 | NUR ---
RT AT BEDSIDE, PT PUT ON BIPAP 30% O2. PT SATURATING IN HIGH 90S.
--- NOTE | 2019-01-17 03:08 | NUR ---
XRAY AT BEDSIDE.
[2019-01-17 03:12] LABS: ABG BASE EXCESS -1.5 mmol/L; ABG PCO2 65.7 mmHg (35.0-45.0); ABG PH 7.237 (7.350-7.450); ABG PO2 132.8 mmHg (75.0-100.0); AaDO2 76.8 mmHg; COHb 0.7 % (0.5-1.5); MetHb 0.5 % (0.0-1.5); O2Hb 96.8 % (94.0-97.0); PEEP,BG 5 cm H2O; SITE, ABG Left Brachial; VENT MODE, BG S/T 12 15/5 40%
[2019-01-17 03:13] LABS: BASOPHILS # (AUTO) 0.1 /CMM (0.0-0.2); BASOPHILS % (AUTO) 0.6 % (0.0-2.0); EOSINOPHILS % (AUTO) 2.4 % (0.0-6.0); HEMATOCRIT 42 % (39-51); HEMOGLOBIN 13.4 g/dL (13.5-17.5); LYMPHOCYTES # (AUTO) 4.9 /CMM (0.8-4.8); LYMPHOCYTES % (AUTO) 23.8 % (20.0-44.0); MEAN CORPUSCULAR HGB CONC 32 g/dl (31.0-36.0); MEAN CORPUSCULAR VOLUME 87 fL (80-96); MONOCYTES # (AUTO) 1.1 /CMM (0.1-1.30); MONOCYTES % (AUTO) 5.2 % (2.0-12.0); NEUTROPHILS # (AUTO) 13.8 /CMM (1.8-8.9); PLATELET COUNT (AUTO) 349 /CMM (150-450); WHITE BLOOD COUNT (AUTO) 20.3 K/uL (4.3-11.0)
[2019-01-17 03:20] LABS: CALCIUM, SERUM 8.4 mg/dL (8.5-10.1); CARBON DIOXIDE 29 mmol/L (21-32); CHLORIDE 101 mmol/L (98-107); CREATININE 5.2 mg/dL (0.6-1.3); GLUCOSE 95 mg/dL (74-106); POTASSIUM 3.6 mmol/L (3.5-5.1); SODIUM SERUM 141 mmol/L (136-145); UREA NITROGEN, BLOOD 39 mg/dL (7-18)
[2019-01-17] MEDS ORDERED: ALBUTEROL FS 2.5 MG/3 ML VIAL.NEB NEB ONE (03:30)
[2019-01-17 03:32] LABS: ALANINE AMINOTRANSFERASE 17 U/L (12-78); ALBUMIN 3.4 g/dL (3.4-5.0); ALKALINE PHOSPHATASE 61 U/L (46-116); ASPARTATE AMINOTRANSFERASE 20 U/L (15-37); B-TYPE NATRIURETIC PEPTIDE 4706 PG/ML (0-125); BILIRUBIN,DIRECT 0.1 mg/dL (0.0-0.2); BILIRUBIN,TOTAL 0.4 mg/dL (0.2-1.0); TOTAL PROTEIN, SERUM 7.9 g/dL (6.4-8.2)
--- NOTE | 2019-01-17 03:34 | NUR ---
PT BROUGHT IN BY FIRE RESCUE ON CPAP. PT PLACED ON BIPAP ON ST 12 09/03 50% Addendum: 01/17/19 at 0337 by SHERMAN ENG RT Amended: Links added.
[2019-01-17] MEDS ORDERED: FUROSEMIDE 40 MG/4 ML VIAL ONE (03:48)
[2019-01-17] MEDS ORDERED: FUROSEMIDE 40 MG/4 ML VIAL IV ONE (04:00)
--- NOTE | 2019-01-17 04:00 | NUR ---
Patient is resting comfortably in bed with eyes closed. Easily aroused. NAD, NOTED. WILL CONTINUE TO MONITOR.
--- NOTE | 2019-01-17 04:59 | NUR ---
REPORT GIVEN TO ADA FREEMAN RN FOR ANNA.
[2019-01-17] MEDS ORDERED: Z GUARD REMEDY 2 OZ OINT TP PRN (06:00)
[2019-01-17] MEDS ORDERED: MAG HYDROX/AL HYDROX/SIMETH 30 ML UDC PO PRN (06:00)
[2019-01-17] MEDS ORDERED: MAGNESIUM HYDROXIDE 30 ML UDC PO PRN (06:00)
[2019-01-17] MEDS ORDERED: ZOLPIDEM TARTRATE 5 MG TABLET PO PRN (06:00)
[2019-01-17] MEDS ORDERED: ONDANSETRON HCL/PF 4 MG/2 ML VIAL IVP PRN (06:00)
[2019-01-17] MEDS ORDERED: ACETAMINOPHEN 325 MG TABLET PO PRN (06:00)
[2019-01-17] MEDS ORDERED: HYDROCODONE/APAP 5/325MG 1 EACH TABLET PO PRN (06:00)
--- NOTE | 2019-01-17 06:25 | NUR ---
RN NOTES RECEIVED PATIENT FROM ER ACCOMPANIED BY 3 STAFF VIA STRETCHER IN STABLE CONDITION. AWAKE, ALERT AND ORIENTED. VERBALLY ABLE TO COMMUNICATE NEEDS. NO COMPLAINT OF PAIN OF THIS TIME. VITAL SIGNS WNL. SKIN ASSESSMENT DONE. REDNESS WITH SCABS ON LEFT MARTI, PICTURE TAKEN. ON BIPAP, TOLERATING WELL. NO DISTRESS NOTED. BREATHING EVEN AND UNLABORED. NEEDS ATTENDED. KEPT CLEAN AND DRY. WILL ENDORSE TO NEXT SHIFT FOR CONTINUITY OF CARE.
[2019-01-17] MEDS: ALBUTEROL FS 2.5 MG/3 ML VIAL.NEB NEB SCH ×4 (07:49→20:29)
[2019-01-17] MEDS ORDERED: LEVOFLOXACIN 500 MG /D5W 100ML 500 MG in PREMIX 1 EA IV SCH (08:00)
--- NOTE | 2019-01-17 08:02 | NUR ---
RT PATIENT REMOVED FROM BIPAP. PLACED ON 4L N/C MIK WELL. PATIENT AWAKE ALERT, RESPONSIVE, NO SOB
[2019-01-17] MEDS ORDERED: ALBU1.257 IH (08:34)
[2019-01-17] MEDS ORDERED: SITA1TAB2 PO (08:34)
[2019-01-17] MEDS ORDERED: FEBU40TA PO (08:34)
[2019-01-17] MEDS ORDERED: ISOS60TA4 PO (08:34)
[2019-01-17] MEDS ORDERED: FENO145T35 PO (08:34)
[2019-01-17] MEDS ORDERED: HYDR-3980 PO (08:34)
[2019-01-17] MEDS ORDERED: FURO20TA4 PO (08:34)
[2019-01-17] MEDS ORDERED: INSU100I19 SQ (08:34)
[2019-01-17] MEDS ORDERED: NIFE90TA38 PO (08:34)
[2019-01-17] MEDS ORDERED: ZOLP10TA6 PO (08:34)
[2019-01-17] MEDS ORDERED: FLUT1DIS3 INH (08:34)
[2019-01-17] MEDS ORDERED: CLOP75TA15 PO (08:34)
[2019-01-17] MEDS ORDERED: ALBUTEROL HALF STRENGTH 1.25 MG/3 ML VIAL.NEB IH PRN (09:30)
[2019-01-17] MEDS ORDERED: CLONIDINE HCL 0.1 MG TABLET PO PRN (09:30)
[2019-01-17] MEDS ORDERED: ZOLPIDEM TARTRATE 10 MG TABLET PO PRN (09:30)
[2019-01-17] MEDS ORDERED: ISOSORBIDE MONONITRATE 60 MG TAB.SR.24H PO SCH (10:00)
[2019-01-17] MEDS ORDERED: CARVEDILOL 25 MG TABLET PO SCH (10:00)
[2019-01-17 10:13] LABS: ABG BASE EXCESS 2.2 mmol/L; ABG OXYGEN SATURATION 95.6 % (92.0-98.5); ABG PCO2 50.9 mmHg (35.0-45.0); ABG PH 7.364 (7.350-7.450); ABG PO2 79.4 mmHg (75.0-100.0); AaDO2 103.7 mmHg; COHb 0.7 % (0.5-1.5); MetHb 0.8 % (0.0-1.5); O2Hb 94.2 % (94.0-97.0); SITE, ABG Left Radial; VENT MODE, BG 4 L N/C
[2019-01-17] MEDS: CLOPIDOGREL BISULFATE 75 MG TABLET PO SCH (10:14)
[2019-01-17] MEDS: FENOFIBRATE NANOCRYS (145 MG) 145 MG TABLET PO SCH (10:14)
[2019-01-17] MEDS: ASPIRIN EC 81 MG TABLET.DR PO SCH (10:15)
[2019-01-17] MEDS: TAMSULOSIN 0.4 MG CAP.SR.24H PO SCH (10:15)
[2019-01-17] MEDS: ISOSORBIDE MONONITRATE (30MG) 30 MG TAB.SR.24H PO SCH (10:15)
[2019-01-17] MEDS: CARVEDILOL 12.5 MG TABLET PO SCH ×2 (10:15→21:14)
[2019-01-17] MEDS: IPRATROPIUM NEB FS 0.5 MG/2.5 ML AMPUL.NEB NEB SCH ×2 (11:14→20:29)
[2019-01-17 16:38] LABS: APPEARANCE,URINE CLEAR (CLEAR); BILIRUBIN,URINE NEGATIVE (NEGATIVE); BLOOD, URINE 2+ Ery/uL (NEGATIVE); COLOR,URINE YELLOW (YELLOW); KETONES,URINE NEGATIVE (NEGATIVE); LEUKOCYTE ESTERASE ,URINE NEGATIVE (NEGATIVE); NITRITE, URINE NEGATIVE (NEGATIVE); PH,URINE 6.5 (5.0-8.0); PROTEIN,URINE 2+ mg/dl (NEGATIVE); UGLUCOSE NEGATIVE (NEGATIVE); UROBILINOGEN,URINE 0.2 EU/dL (0.2)
[2019-01-17 17:20] LABS: BACTERIA,URINE Rare /HPF (None Seen); SQUAMOUS EPITHELIAL CELL,UR Rare /HPF (None Seen); WBC,URINE 0-2 /HPF (0-3)
--- NOTE | 2019-01-17 19:00 | NUR ---
RN NOTE PT BEEN STABLE ON NC 2 L/MIN, VS STABLE, NO FEVER, HD DONE AT BEDSIDE IN ICU, TOLERATED WELL. ABLE TO TOLERATE PO INTAKE, DENIED PAIN. TRANSFERRED TO [facility] 111-1 WITH ACLS PROTOCOL. NO DISTRESS. MEDS GIVEN ORDERED AND NEEDS MET. SAFETY MEASURES IN PLACE, CALL LIGHT WITHIN REACH. WILL ENDORSE TO COMMERCIAL REAL ESTATE BROKER.
[2019-01-17] MEDS ORDERED: HEPARIN SODIUM, PORCINE 5000 UNITS/1 ML VIAL SQ SCH (21:00)
[2019-01-18] VITALS: BP 100/42
[2019-01-18] MEDS: IPRATROPIUM NEB FS 0.5 MG/2.5 ML AMPUL.NEB NEB SCH ×3 (01:30→11:29)
[2019-01-18 04:00] VITALS: BP 140/53
--- NOTE | 2019-01-18 06:11 | NUR ---
RN CLOSING NOTE PATIENT IN NO ACUTE DISTRESS OBSERVED OVERNIGHT. PATIENT ON 2LPM OF O2 VIA NC OVERNIGHT. REFUSED NOC BIPAP, PATIENT SLEPT COMFORTABLY WITH NO DISTRESS. ASSISTED WITH ADLS NEEDED, FALL AND SAFETY PRECAUTIONS AT ALL TIMES. NEEDS ANTICIPATED AND MET. CALL LIGHT IN REACH. WILL ENDORSE ACCORDINGLY.
[2019-01-18 06:39] LABS: BASOPHILS % (AUTO) 0.3 % (0.0-2.0); EOSINOPHILS % (AUTO) 1.7 % (0.0-6.0); HEMATOCRIT 34 % (39-51); HEMOGLOBIN 11.2 g/dL (13.5-17.5); LYMPHOCYTES # (AUTO) 2.7 /CMM (0.8-4.8); LYMPHOCYTES % (AUTO) 21.3 % (20.0-44.0); MEAN CORPUSCULAR HGB CONC 33 g/dl (31.0-36.0); MEAN CORPUSCULAR VOLUME 86 fL (80-96); MONOCYTES # (AUTO) 0.8 /CMM (0.1-1.30); MONOCYTES % (AUTO) 6.6 % (2.0-12.0); NEUTROPHILS # (AUTO) 8.7 /CMM (1.8-8.9); NEUTROPHILS % (AUTO) 70.1 % (43.0-81.0); PLATELET COUNT (AUTO) 254 /CMM (150-450); RED BLOOD CELL COUNT(AUTO) 3.98 MIL/uL (4.5-6.0); WHITE BLOOD COUNT (AUTO) 12.4 K/uL (4.3-11.0)
[2019-01-18 07:08] LABS: ALANINE AMINOTRANSFERASE 14 U/L (12-78); ALBUMIN 2.9 g/dL (3.4-5.0); ALKALINE PHOSPHATASE 58 U/L (46-116); ASPARTATE AMINOTRANSFERASE 18 U/L (15-37); BILIRUBIN,TOTAL 0.4 mg/dL (0.2-1.0); CALCIUM, SERUM 8.2 mg/dL (8.5-10.1); CARBON DIOXIDE 27 mmol/L (21-32); CHLORIDE 102 mmol/L (98-107); CREATININE 4.8 mg/dL (0.6-1.3); GLUCOSE 90 mg/dL (74-106); MAGNESIUM 2.1 mg/dL (1.8-2.4); PHOSPHORUS 4.7 mg/dL (2.5-4.9); POTASSIUM 3.7 mmol/L (3.5-5.1); SODIUM SERUM 140 mmol/L (136-145); TOTAL PROTEIN, SERUM 6.5 g/dL (6.4-8.2); UREA NITROGEN, BLOOD 36 mg/dL (7-18)
--- NOTE | 2019-01-18 07:30 | NUR ---
RN [facility] OPENING NOTES RECEIVED BEDSIDE REPORT. PATIENT A/O X4 IN BED WATCHING TV. NO COMPLAINTS OF RESPIRATORY DISTRESS OR ACUTE PAIN NOTED. AMBULATORY IN ROOM. IV SL TO LEFT HAND #18 AND LEFT WRIST #20. KARINE AV SHUNT HD TUE/THUR/SAT. SAFETY PRECAUTIONS IN PLACE BED IN LOWEST POSITION CALL LIGHT WITHIN REACH WILL CONT TO MONITOR
[2019-01-18 07:37] LABS: CHOLESTEROL 173 mg/dL (<200); HDL CHOLESTEROL 45 mg/dL (40-60); LDL 105 mg/dL (0-99); TRIGLYCERIDES 138 mg/dL (30-150)
[2019-01-18 08:00] VITALS: BP 173/60
[2019-01-18] MEDS: CARVEDILOL 12.5 MG TABLET PO SCH (08:13)
[2019-01-18] MEDS: FENOFIBRATE NANOCRYS (145 MG) 145 MG TABLET PO SCH (08:13)
[2019-01-18] MEDS: TAMSULOSIN 0.4 MG CAP.SR.24H PO SCH (08:13)
[2019-01-18] MEDS: ASPIRIN EC 81 MG TABLET.DR PO SCH (08:13)
[2019-01-18] MEDS: ISOSORBIDE MONONITRATE (30MG) 30 MG TAB.SR.24H PO SCH (08:13)
[2019-01-18] MEDS: CLOPIDOGREL BISULFATE 75 MG TABLET PO SCH (08:13)
--- NOTE | 2019-01-18 08:18 | NUR ---
WOUND CARE CONSULT: PT PRESENTS WITH REDNESS AND SWELLING TO AREA OF LEFT LOWER LEG, PRESENT ON ADMISSION. DEFER TO MD. RECOMMEND LEG ELEVATION. PT REFUSED FULL SKIN ASSESSMENT. PT IS AMBULATORY AND CONTINENT PER NURSING STAFF. WILL SEE PRN.
[2019-01-18] MEDS: ALBUTEROL FS 2.5 MG/3 ML VIAL.NEB NEB SCH ×3 (08:45→15:30)
--- NOTE | 2019-01-18 08:45 | NUR ---
RT Pt is awake and alert, pt refused HHN tx at this time. No signs of SOB or respriatory distress noted. Addendum: 01/18/19 at 0849 by MICHAEL RAMÍREZ RT Amended: Links added.
--- NOTE | 2019-01-18 08:50 | NUR ---
RT Pt refused ABG at this time, Dr. Gates notified and aware.
[2019-01-18] MEDS ORDERED: NIFEdipine XL (30MG) 30 MG TAB PO SCH (09:00)
[2019-01-18] MEDS ORDERED: FLUTICASONE/VILANTEROL 1 EACH BLST.W.DEV IH SCH (09:00)
--- NOTE | 2019-01-18 10:48 | NUR ---
DRAWER LINER NOTES MANUAL B/P TAKEN PER DR SHUKLA SITTING IN CHAIR 140/57 MANUAL LEFT ARM
[2019-01-18 10:51] VITALS: BP 140/57
--- NOTE | 2019-01-18 10:53 | NUR ---
SMEARER NOTES PATIENT DOWNGRADED TO MED/SURG
[2019-01-18 13:00] VITALS: BP 140/57
--- NOTE | 2019-01-18 15:46 | NUR ---
RN MS NOTES PATIENT COMPLETED HD TOTAL OF 2000 ML OUT
--- NOTE | 2019-01-18 15:47 | NUR ---
RN MS DISCHARGE NOTES PATIENT DISCHARGE AND EXIT CARE GONE OVER WITH PATIENT STATES HE UNDERSTANDS AND WILL F/U WITH CARDIOLOGY AND NEPHROLOGY. IV REMOVED FROM LEFT HAND X2 CATH INTACT BROUGHT CLOTHES. VS 98.3 HR 60 RR 20 O2 98% ON ROOM AIR BP 121/56 PATIENT REFUSED PHOTS OF LL LEG. ALL PAPERS SIGNED AND DOCUMENTATION DONE
[2019-01-18] MEDS ORDERED: ATORVASTATIN 10 MG TABLET PO SCH (22:00)
== END 2019-01-18 16:49 | disposition home or self-care (01) | DRG 871 ==
LOC: ER 02:40 → ICU 04:57 → TELE-TD 16:26 → MEDSG1 01-18 12:32
PROVIDERS: ADMIT Nurse Practitioner Acute Care
PROC: 5A09357 Assistance with Respiratory Ventilation, Less than 24 Consecutive Hours, Continuous Positive Airway Pressure (ICD-10-PCS; principal; 2019-01-17)
PROC: 5A1D70Z Performance of Urinary Filtration, Intermittent, Less than 6 Hours Per Day (ICD-10-PCS; 2019-01-17)
PROC: 5A1D70Z Performance of Urinary Filtration, Intermittent, Less than 6 Hours Per Day (ICD-10-PCS; 2019-01-18)
DX: A41.9 Sepsis, unspecified organism (principal); N18.6 End stage renal disease; G93.41 Metabolic encephalopathy; I50.33 Acute on chronic diastolic (congestive) heart failure; J96.01 Acute respiratory failure with hypoxia; J96.02 Acute respiratory failure with hypercapnia; J18.9 Pneumonia, unspecified organism; I21.A1 Myocardial infarction type 2; J96.22 Acute and chronic respiratory failure with hypercapnia; J96.21 Acute and chronic respiratory failure with hypoxia; I13.2 Hypertensive heart and chronic kidney disease with heart failure and with stage 5 chronic kidney disease, or end stage renal disease; E87.2 Acidosis; E66.2 Morbid (severe) obesity with alveolar hypoventilation; E11.22 Type 2 diabetes mellitus with diabetic chronic kidney disease; I16.0 Hypertensive urgency; E78.5 Hyperlipidemia, unspecified; J44.9 Chronic obstructive pulmonary disease, unspecified; I25.10 Atherosclerotic heart disease of native coronary artery without angina pectoris; Z99.81 Dependence on supplemental oxygen; Z99.2 Dependence on renal dialysis; Z95.1 Presence of aortocoronary bypass graft; Z87.891 Personal history of nicotine dependence; Z86.73 Personal history of transient ischemic attack (TIA), and cerebral infarction without residual deficits; Z83.3 Family history of diabetes mellitus; Z82.49 Family history of ischemic heart disease and other diseases of the circulatory system; G89.29 Other chronic pain; Z79.51 Long term (current) use of inhaled steroids; Z79.82 Long term (current) use of aspirin; Z79.899 Other long term (current) drug therapy; Z68.35 Body mass index [BMI] 35.0-35.9, adult; Z79.01 Long term (current) use of anticoagulants; Z79.4 Long term (current) use of insulin; Z79.02 Long term (current) use of antithrombotics/antiplatelets
CPT/HCPCS: 36415; 36600; 71045-TC; 80048-TC; 80053-TC; 80061-TC; 80076-TC; 81000-TC; 82803-TC; 82962-TC; 83605-TC; 83735-TC; 83880; 84100-TC; 84484-TC; 85025-TC; 86706; 87040-TC; 87081-TC; 87086-TC; 87340; 90935-TC; 93307-TC; 94799-TC; A4216; G0378; J1940; J1956

== ENCOUNTER 2020-05-14 12:35 | Inpatient (IN) | payer MEDICARE, OTHER ==
[~2020-05-14] VITALS: Ht 170.2 cm; Wt 99.8 kg
[~2020-05-14 12:35] MED LIST changes: -ALBU1.25 NEB; +ALBU1.257 IH; -AZIT500T4 PO; +FEBU40TA PO; +FENO145T21 PO; +FLUT1DIS3 INH; -FLUT1DIS5 IH; -FURO-144 PO; +FURO20TA4 PO; +HYDR-3980 PO; +INSU100I19 SQ; +ISOS60TA4 PO; -METH4TAB3 PO; +NIFE90TA38 PO; -REPA1TAB6 PO; +REPA1TAB7 PO; +SITA1TAB2 PO; +ZOLP10TA6 PO
[2020-05-14 12:55] LABS: BASOPHILS # (AUTO) 0.1 /CMM (0.0-0.2); BASOPHILS % (AUTO) 0.5 % (0.0-2.0); EOSINOPHILS % (AUTO) 1.5 % (0.0-6.0); HEMATOCRIT 37 % (39-51); HEMOGLOBIN 11.8 g/dL (13.5-17.5); LYMPHOCYTES # (AUTO) 1.7 /CMM (0.8-4.8); LYMPHOCYTES % (AUTO) 11.8 % (20.0-44.0); MEAN CORPUSCULAR HGB CONC 32 g/dl (31.0-36.0); MEAN CORPUSCULAR VOLUME 91 fL (80-96); MONOCYTES # (AUTO) 0.9 /CMM (0.1-1.30); MONOCYTES % (AUTO) 6.7 % (2.0-12.0); NEUTROPHILS # (AUTO) 11.2 /CMM (1.8-8.9); NEUTROPHILS % (AUTO) 79.5 % (43.0-81.0); PLATELET COUNT (AUTO) 328 /CMM (150-450); RED BLOOD CELL COUNT(AUTO) 4.04 MIL/uL (4.5-6.0); WHITE BLOOD COUNT (AUTO) 14.1 K/uL (4.3-11.0)
--- NOTE | 2020-05-14 13:00 | NUR ---
GLF, family called 911; the patient C/O left hip and left elbow pain Denies LOC, denies dizziness prior to fall; mechanical fall per patient rep. On room air, breathing evenly and unlabored. connected to the monitor and pulse ox. kept comfortable, will continue to monitor accordingly.
[2020-05-14 13:08] LABS: ALANINE AMINOTRANSFERASE 13 U/L (12-78); ALBUMIN 3.2 g/dL (3.4-5.0); ALKALINE PHOSPHATASE 50 U/L (46-116); ASPARTATE AMINOTRANSFERASE 17 U/L (15-37); BILIRUBIN,DIRECT 0.2 mg/dL (0.0-0.2); BILIRUBIN,TOTAL 0.6 mg/dL (0.2-1.0); CARBON DIOXIDE 25 mmol/L (21-32); CHLORIDE 98 mmol/L (98-107); GLUCOSE 79 mg/dL (74-106); POTASSIUM 4.4 mmol/L (3.5-5.1); SODIUM SERUM 137 mmol/L (136-145); TOTAL PROTEIN, SERUM 7.5 g/dL (6.4-8.2); UREA NITROGEN, BLOOD 61 mg/dL (7-18)
[2020-05-14 13:10] LABS: CREATININE 7.8 mg/dL (0.6-1.3)
--- NOTE | 2020-05-14 13:13 | NUR ---
wheeled patient via [facility] for ct and x-ray
[2020-05-14 13:19] LABS: CALCIUM, SERUM 7.9 mg/dL (8.5-10.1)
--- NOTE | 2020-05-14 13:38 | NUR ---
ORTHO ON-CALL PAGED
--- NOTE | 2020-05-14 13:45 | NUR ---
PANEL ON-CALL PAGED
[2020-05-14] MEDS ORDERED: MORPHINE SULFATE INJ 2 MG/ML DISP.SYRIN ONE (13:55)
--- NOTE | 2020-05-14 13:56 | NUR ---
ORTHO [phone] PAGED AGAIN.
[2020-05-14] MEDS ORDERED: MAGNESIUM HYDROXIDE 30 ML UDC PO PRN ×2 (14:00→15:30)
[2020-05-14] MEDS ORDERED: ZOLPIDEM TARTRATE 5 MG TABLET PO PRN ×2 (14:00→14:15)
[2020-05-14] MEDS ORDERED: MORPHINE SULFATE INJ 2 MG/ML DISP.SYRIN IV ONE (14:00)
[2020-05-14] MEDS ORDERED: MORPHINE SULFATE INJ 2 MG/ML DISP.SYRIN IV PRN (14:00)
[2020-05-14] MEDS ORDERED: MAG HYDROX/AL HYDROX/SIMETH 30 ML UDC PO PRN ×2 (14:00→15:30)
[2020-05-14] MEDS ORDERED: ONDANSETRON HCL/PF 4 MG/2 ML VIAL IVP PRN ×2 (14:00→15:30)
[2020-05-14] MEDS ORDERED: ACETAMINOPHEN 325 MG TABLET PO PRN ×2 (14:00→15:30)
[2020-05-14] MEDS ORDERED: Z GUARD REMEDY 2 OZ OINT TP PRN ×2 (14:00→14:15)
[2020-05-14] MEDS ORDERED: HYDROCODONE/APAP 5/325MG 1 EACH TABLET PO PRN (14:00)
--- NOTE | 2020-05-14 14:11 | NUR ---
GOT BED 327-1
--- NOTE | 2020-05-14 14:28 | NUR ---
COVID RESULT: NEGATIVE
--- NOTE | 2020-05-14 15:26 | NUR ---
wheeled patient via gurney accompanied by RN and emt in no distress.
--- NOTE | 2020-05-14 15:33 | NUR ---
TELE/RN NOTE RECEIVED THE PATIENT IN BED. PATIENT IS ALERT AND ORIENTED X3 WITH EPISODES OF FORGETFULNESS. PATIENT COMPLAINS OF EFT HIP PAIN 6/10. IN ROOM AIR AND DENIES SOB. RESPIRATION REGULAR AND UNLABORED. PATIENT IS NOTED TO HAVE LFA G 18 PATENT AND SALINE LOCKED. RIGHT UPPER ARM AV SHUNT PRESENT WHICH IS POSITIVE FOR THRILL AND BRUIT. BED LOW AND LOCKED. SIDE RAILS UP X3. BED ALARM ON. CALL LIGHT WITHIN REACH. WILL CONTINUE TO MONITOR.
[2020-05-14 15:45] VITALS: BP 195/67
--- NOTE | 2020-05-14 16:06 | NUR ---
TELE/RN NOTE BLOOD SUGAR IS 56. WILL RECHECK AGAIN. PATIENT IS IN NO APPARENT DISTRESS
[2020-05-14] MEDS: HYDROCODONE/APAP 5/325MG 1 EACH TABLET PO PRN (16:36)
--- NOTE | 2020-05-14 16:36 | NUR ---
TELE/RN NOTE NORCO TAB WAS NOT SCANNED DUE TO BARCODE WAS FADED.
--- NOTE | 2020-05-14 16:45 | NUR ---
TELE/RN NOTE THE PATIENT REFUSES SKIN ASSESSMENT AT THIS TIME DESPITE EXPLAINING RISKS AND BENEFITS.
--- NOTE | 2020-05-14 16:50 | NUR ---
TELE/RN NOTE DR LOZA IS MADE AWARE OF ELEVATED BLOOD PRESSURE (195/67), BLOOD SUGAR OF 56 AND THAT THE PATIENT DOES NOT HAVE DIET ORDER. RECEIVED ORDER OF CCHO 60 GM WITH 2 G SODIUM DIET. THE ORDER NOTED AND CARRIED OUT. PER MD HE WILL DO MED RECON AND PLACE ORDERS.
[2020-05-14 17:00] VITALS: BP 186/72
[2020-05-14] MEDS ORDERED: ZOLPIDEM TARTRATE 10 MG TABLET PO PRN (17:00)
[2020-05-14] MEDS ORDERED: CLONIDINE HCL 0.1 MG TABLET PO PRN (17:00)
[2020-05-14] MEDS ORDERED: CLOPIDOGREL BISULFATE 75 MG TABLET PO SCH (17:00)
[2020-05-14] MEDS ORDERED: ASPIRIN EC 81 MG TABLET.DR PO SCH (17:00)
[2020-05-14] MEDS ORDERED: ISOSORBIDE MONONITRATE 60 MG TAB.SR.24H PO SCH (17:00)
--- NOTE | 2020-05-14 17:00 | NUR ---
TELE/RN NOTE PATIENT`S BLOOD SUGAR CHECK IS 64 AFTER GIVING SNACKS. THE PATIENT IN NO APPARENT DISTRESS.
--- NOTE | 2020-05-14 17:02 | NUR ---
TELE/RN NOTE DR LOZA IS MADE AWARE OF PATIENT`S VTE SCORE OF 5. PER KARIMI THE PATIENT IS ALREADY ON PLAVIX 75 MG, ASPIRIN 81 MG AND DOES NOT NEED ANY ORDERS OF BLOOD THINNERS. CHARGE NURSE IS MADE AWARE.
[2020-05-14] MEDS: FUROSEMIDE 20 MG TABLET PO SCH (17:13)
[2020-05-14] MEDS: FENOFIBRATE NANOCRYS (145 MG) 145 MG TABLET PO SCH (17:13)
[2020-05-14] MEDS ORDERED: ISOSORBIDE MONONITRATE (30MG) 30 MG TAB.SR.24H PO SCH (17:21)
[2020-05-14] MEDS ORDERED: REPAGLINIDE 0.5 MG TABLET PO SCH (18:00)
--- NOTE | 2020-05-14 18:00 | NUR ---
TELE/RN NOTE PARTIAL SKIN ASSESSMENT DONE DUE TO PATIENT REFUSING TURNING DESPITE EXPLAINING RISKS AND BENEFITS.
[2020-05-14] MEDS: MORPHINE SULFATE INJ 2 MG/ML DISP.SYRIN IV PRN (18:15)
--- NOTE | 2020-05-14 18:39 | NUR ---
TELE/RN NOTE THE PATIENT IS IN BED. ALERT AND ORIENTED X3. COMPLAINS OF LEFT HIP PAIN 5/10 AT THIS TIME. MORPHINE IV PUSH GIVEN AT 1815 PER ORDER, WILL REASSESS PAIN AGAIN. LFA G 118 PATENT AND SALINE LOCKED. RIGHT UPPER ARM AV SHUNT PRESENT AND POSITIVE FOR THRILL AND BRUIT. TELE BOX READING IS SR 68. PEDAL PULSES PRESENT. BED LOW AND LOCKED. SIDE RAILS UP X3. CALL LIGHT WITHIN REACH. WILL ENDORSE TO BOAT RENTAL CLERK.
--- NOTE | 2020-05-14 19:10 | NUR ---
AUTOMATION MACHINE OPERATOR OPENING NOTES PT RECEIVED RESTING COMFORTABLY IN BED. A/OX3, LATVIAN/KENYAN SPEAKING. ON ROOM AIR, BREATHING EVEN AND UNLABORED. IN NO ACUTE DISTRESS. ON TELE MONITOR SHOWING NSR 70'S. IV TO LFA PATENT AND INTACT. WITH C/O OF MILD LEFT LEG PAIN 01/02. ELEVATED ON BLANKETS. HOB ELEVATED 30 DEGREES. BED IN LOW/LOCKED POSITION WITH CALL LIGHT IN REACH. SIDE RAILS UPX3 AND BED ALARM ON FOR SAFETY. WILL CONTINUE TO MONITOR
--- NOTE | 2020-05-14 19:20 | NUR ---
ARETHA - LANDEN ARCHIBALD RECEIVED CALL FROM LANDEN WITH TELEPHONE ORDERS TO OBTAIN CONSENT FOR LEFT HIP HEMIARTHROPLASTY, PLANNING FOR 2:30PM TOMORROW. DC PLAVIX AND ASPIRIN FOR TONIGHT AND TOMORROW. NPO AFTER MIDNIGHT. READBACK FOR VERIFICATION. WILL CARRY OUT.
[2020-05-14] MEDS: IPRATROPIUM NEB FS 0.5 MG/2.5 ML AMPUL.NEB NEB SCH (19:30)
[2020-05-14 20:00] VITALS: BP 193/70
[2020-05-14 20:13] VITALS: BP 93/70
[2020-05-14] MEDS: CARVEDILOL 12.5 MG TABLET PO SCH (20:59)
[2020-05-14] MEDS: INSULIN GLARGINE, 100 UNIT/ML CARTRIDGE SQ SCH (21:00)
[2020-05-14] MEDS: ATORVASTATIN 10 MG TABLET PO SCH (21:01)
--- NOTE | 2020-05-14 21:06 | NUR ---
BLOOD SUGAR 86 - PT WITH NO APPETITE AT THIS TIME. TO BE NPO AFTER MIDNIGHT
--- NOTE | 2020-05-14 21:20 | NUR ---
DAIJA [phone]
[2020-05-14] MEDS: ALBUTEROL HALF STRENGTH 1.25 MG/3 ML VIAL.NEB IH PRN (21:22)
[2020-05-14 23:53] VITALS: BP 199/77
[2020-05-15] VITALS (57 sets, daily range): BP systolic 84–217; BP diastolic 36–93
[2020-05-15] MEDS: MORPHINE SULFATE INJ 2 MG/ML DISP.SYRIN IV PRN ×4 (00:28→20:54)
[2020-05-15] MEDS: ALBUTEROL HALF STRENGTH 1.25 MG/3 ML VIAL.NEB IH PRN (00:50)
[2020-05-15] MEDS: IPRATROPIUM NEB FS 0.5 MG/2.5 ML AMPUL.NEB NEB SCH ×4 (00:50→19:39)
--- NOTE | 2020-05-15 01:20 | NUR ---
RN NOTES PT NOTED TO BE TACHYPNEIC, DIAPHORETIC, SHORT OF BREATH WITH SPO2 85% ON 3L O2 VIA NC. WITH WHEEZING/CRACKLES. BLOOD SUGAR RWQDI=928. BP NOTED TO BE 220/84. UNABLE TO GIVE PRN CATAPRES DUE TO PT BEING IN DISTRESS. PLACED ON NONREBREATHER MASK. RT CALLED FOR BREATHING TX. MADE AWARE. WITH VERBAL ORDERS FOR HYDRALAZINE 10MG IVP X1 NOW THEN Q4H PRN. BUMEX 2MG IVP X1. NITRO PASTE 2 INCHES TO CHEST WALL Q6H START NOW. STAT CXR AND ABG ORDERED. WILL CARRY OUT.
[2020-05-15] MEDS ORDERED: BUMETANIDE INJ 0.25 MG/ML VIAL IV ONE (01:30)
[2020-05-15] MEDS ORDERED: hydrALAZINE HCL IV 20 MG VIAL IV PRN (01:30)
--- NOTE | 2020-05-15 01:37 | NUR ---
RESULTS OF ABG RELAYED TO MD. WITH ORDERS FOR BIPAP AND TRANSFER TO ICU
--- NOTE | 2020-05-15 01:46 | NUR ---
RADIOLOGY AT BEDSIDE FOR CHEST XRAY
--- NOTE | 2020-05-15 02:30 | NUR ---
RN OPENING NOTE RECEIVED PATIENT FROM MED SURG,ALERT ORIENTED X3 VERBALLY RESPONSIVE ON BIPAP,BP 86/46 BREATHING IS NONLABORED,HEMODIALYSES TUE/THUR/SAT AV SH ON RIGHT UPPER ARM,CONTINENT B/B,HAS HIP SURGERY TOMORROW,NPO NOW CONTINUE TO MONITOR, ON TELE MONITORING.
--- NOTE | 2020-05-15 02:32 | NUR ---
RN NOTE PATIENT IS ON 3L OXYGEN AND ON BIPAP 16/5 RATE 26 FIO 40% ,IV SITE ON LEFT FOREARM INTACT,FLUSHED CONTINUE TO MONITOR
--- NOTE | 2020-05-15 02:49 | NUR ---
PER [facility], UNABLE TO VERIFY NITRO PATCH BECAUSE PT IS ALREADY ON IMDUR. NOTIFIED MD. NARAYANAN TO [place] IMDUR.
[2020-05-15] MEDS ORDERED: BUMETANIDE INJ 0.25 MG/ML VIAL ONE (02:56)
[2020-05-15] MEDS ORDERED: ISOSORBIDE MONONITRATE (30MG) 30 MG TAB.SR.24H PO SCH (03:00)
--- NOTE | 2020-05-15 03:06 | NUR ---
PT TRANSFERRED TO ICU ROOM 263 VIA ACLS PROTOCOL
[2020-05-15] MEDS: NITROGLYCERIN PACKET 1 GM PACKET TOP SCH ×3 (03:27→17:54)
[2020-05-15] MEDS ORDERED: NOREPINEPHRINE 8 MG in IV NS 0.9% 242 ML IV PRN (03:30)
[2020-05-15] MEDS ORDERED: NOREPINEPHRINE 8MG/250ML RTU 250 ML IV ONE (03:32)
--- NOTE | 2020-05-15 04:00 | NUR ---
RN NOTE NITRO PATCH NOT GIVEN DUE TO LOW BLOOD PRESSURE.
[2020-05-15 05:38] LABS: CALCIUM, SERUM 8.7 mg/dL (8.5-10.1); CARBON DIOXIDE 24 mmol/L (21-32); CHLORIDE 95 mmol/L (98-107); GLUCOSE 161 mg/dL (74-106); POTASSIUM 4.5 mmol/L (3.5-5.1); SODIUM SERUM 134 mmol/L (136-145); UREA NITROGEN, BLOOD 68 mg/dL (7-18)
[2020-05-15] MEDS ORDERED: NITROGLYCERIN PACKET 1 GM PACKET TOP SCH (06:00)
[2020-05-15 06:04] LABS: CREATININE 8.5 mg/dL (0.6-1.3)
--- NOTE | 2020-05-15 06:11 | NUR ---
RN NOTE RECEIVED A CALL FROM LAB WITH CRITICAL LAB VALUE CREATININE 8.5, CALLED DR TIPTON MADE AWARE.
--- NOTE | 2020-05-15 06:30 | NUR ---
RN NOTE PATIENT START DIALYSIS AT THIS TIME.
[2020-05-15 06:33] LABS: ABG BASE EXCESS -4.4 mmol/L; ABG OXYGEN SATURATION 86.5 % (92.0-98.5); ABG PCO2 69.2 mmHg (35.0-45.0); ABG PH 7.182 (7.350-7.450); ABG PO2 60.9 mmHg (75.0-100.0); AaDO2 57.1 mmHg; COHb 1.1 % (0.5-1.5); MetHb 0.2 % (0.0-1.5); O2Hb 85.4 % (94.0-97.0); SITE, ABG Left Radial
[2020-05-15 06:33] LABS: ABG BASE EXCESS -3.9 mmol/L; ABG PCO2 45.1 mmHg (35.0-45.0); ABG PH 7.313 (7.350-7.450); ABG PO2 86.9 mmHg (75.0-100.0); AaDO2 146.4 mmHg; COHb 1.6 % (0.5-1.5); MetHb 0.2 % (0.0-1.5); O2Hb 94.3 % (94.0-97.0); SITE, ABG Left Radial
[2020-05-15] MEDS ORDERED: ALBUMIN 25% 25 GM in PREMIX 1 EA IV STA (06:52)
--- NOTE | 2020-05-15 06:57 | NUR ---
RN CLOSING NOTE PATIENT REMAINS ON DIALYSIS AT THIS TIME,ALERT ORIENTED X3 VERBALLY RESPONSIVE,ON BIPAP BREATHING,HAS LEFT HIP SURGERY AT 1400 TODAY, NPO, KEPT CLEAN AND DRY,KEPT COMFORTABLE,CALL LIGHT WITHIN REACH,ENDORSE NEXT COMING SHIFT FOR CONTINUATION OF CARE
[2020-05-15] MEDS: INSULIN GLARGINE, 100 UNIT/ML CARTRIDGE SQ SCH ×2 (07:57→21:00)
[2020-05-15] MEDS: NIFEdipine XL (30MG) 30 MG TAB PO SCH ×2 (09:00→10:25)
[2020-05-15] MEDS: TAMSULOSIN 0.4 MG CAP.SR.24H PO SCH ×2 (09:00→10:25)
[2020-05-15] MEDS: FLUTICASONE/VILANTEROL 1 EACH BLST.W.DEV IH SCH (09:00)
[2020-05-15] MEDS: FUROSEMIDE 20 MG TABLET PO SCH (09:00)
[2020-05-15] MEDS: CARVEDILOL 12.5 MG TABLET PO SCH ×2 (09:00→21:48)
[2020-05-15] MEDS: FENOFIBRATE NANOCRYS (145 MG) 145 MG TABLET PO SCH ×2 (09:00→10:25)
--- NOTE | 2020-05-15 10:04 | NUR ---
PER BIOMEDICAL SCIENTIST GIL SURGERY IS DELAYED TILL TOMORROW D/T PT FLUID OVERLOAD. PER DR. AYALA PT IS TO KEEP BIPAP ON UNTIL SURGERY, NPO EXCEPT MEDS.
[2020-05-15] MEDS ORDERED: DEXTROSE 50%-WATER 50 ML DISP.SYRIN IV PRN (10:30)
[2020-05-15] MEDS: BLOOD SUGAR DIAGNOSTIC 1 EACH STRIP IN SCH ×3 (12:12→23:56)
[2020-05-15 14:05] LABS: ABG BASE EXCESS -0.7 mmol/L; ABG OXYGEN SATURATION 97.2 % (92.0-98.5); ABG PCO2 43.6 mmHg (35.0-45.0); ABG PH 7.371 (7.350-7.450); AaDO2 142.1 mmHg; COHb 1.4 % (0.5-1.5); O2Hb 95.8 % (94.0-97.0); SITE, ABG Left Radial; VENT MODE, BG ST 15/5
--- NOTE | 2020-05-15 18:50 | NUR ---
END OF SHIFT NOTE: PT HAD AN UNEVENTFUL SHIFT. SURGERY IS DELAYED TILL AT LEAST TOMORROW. PT IS ON BIPAP AND CONTINUES TO BE NPO. PT'S MOUTH MOISTENED Q2H PER PT REQUEST. PT HAD DIALYSIS THIS AM 3L OFF PER KNUCKLE STRAP SEWER. PT REFUSED TO BE REPOSITIONED MORE THAN SLIGHT REPOSITIONING THIS SHIFT. PT CLAIMS HE CAN REPOSITION SELF, ALTHOUGH RN OBSERVED PT IN SIMILAR POSITION MOST OF SHIFT. MORPHINE GIVEN 3 TIMES THIS SHIFT FOR PAIN. PT CHECKED ON HOURLY AND PRN BY NURSING STAFF.
--- NOTE | 2020-05-15 19:00 | NUR ---
Received patient awake,alert,follows simple commands,speaks Kiswahili but understands a little Bulgarian.Not in any acute distress but complains of left leg pain(not hip pain) occasionally ,which is worst on movement. On BIPAP .NPO except meds.Comfort care done,needs attended.AV shunt on KARINE(shunt Precaution observed. IV on left posterior forearm noted to be infiltrated(but flushing),will closely monitor IV site for worsening extravasation.will discontinue and insert new PIV .
--- NOTE | 2020-05-15 19:42 | NUR ---
RT NOTE PT RECEIVED AWAKE/ALERT ON BIPAP. MASK SECURED WITH MEPILEX ON FACE. TX GIVEN, NO ADVERSE REACTIONS NOTED. BIPAP PLUGGED TO RED OUTLET. ALARMS ON AND AUDIBLE. NO DISTRESS NOTED AT THIS TIME. WILL CONTINUE TO MONITOR T/O SHIFT. Addendum: 05/15/20 at 1943 by CONOR SALAMANCA RT Amended: Links added.
[2020-05-15] MEDS: ATORVASTATIN 10 MG TABLET PO SCH (21:48)
--- NOTE | 2020-05-15 22:00 | NUR ---
Patient getting uncooperative,keeps taking off BIPAP, states he could not sleep with the BIPAP .Still c/o intermittent pain of left leg,refuses to move or turn due to pain.will give [place] for pain if pain level does not improve.
[2020-05-15] MEDS: HYDROCODONE/APAP 10/325MG 1 EA TABLET PO PRN (23:02)
[2020-05-16] VITALS (42 sets, daily range): BP systolic 97–166; BP diastolic 47–97
--- NOTE | 2020-05-16 | NUR ---
Complaining about the BIPAP,getting more and more uncooperative with the BIPAP,explained to him why he can not keep taking off BIPAP and that he can not keep taking ice chips or drink while on BIPAP machine.Comfort care done, left leg repositioned in a comfortable position,still with pain of left leg worst on movement.
[2020-05-16] MEDS: NITROGLYCERIN PACKET 1 GM PACKET TOP SCH ×5 (00:18→23:36)
[2020-05-16] MEDS: IPRATROPIUM NEB FS 0.5 MG/2.5 ML AMPUL.NEB NEB SCH ×4 (01:02→19:55)
[2020-05-16] MEDS: MORPHINE SULFATE INJ 2 MG/ML DISP.SYRIN IV PRN ×3 (01:13→14:26)
--- NOTE | 2020-05-16 02:00 | NUR ---
Able to sleep better,remains stable.
[2020-05-16 04:33] LABS: BASOPHILS # (AUTO) 0.1 /CMM (0.0-0.2); BASOPHILS % (AUTO) 0.4 % (0.0-2.0); EOSINOPHILS % (AUTO) 2.3 % (0.0-6.0); HEMATOCRIT 35 % (39-51); HEMOGLOBIN 11.5 g/dL (13.5-17.5); LYMPHOCYTES % (AUTO) 7.8 % (20.0-44.0); MEAN CORPUSCULAR HGB CONC 33 g/dl (31.0-36.0); MEAN CORPUSCULAR VOLUME 91 fL (80-96); MONOCYTES # (AUTO) 0.6 /CMM (0.1-1.30); MONOCYTES % (AUTO) 4.8 % (2.0-12.0); NEUTROPHILS # (AUTO) 11.2 /CMM (1.8-8.9); NEUTROPHILS % (AUTO) 84.7 % (43.0-81.0); PLATELET COUNT (AUTO) 259 /CMM (150-450); RED BLOOD CELL COUNT(AUTO) 3.87 MIL/uL (4.5-6.0); WHITE BLOOD COUNT (AUTO) 13.3 K/uL (4.3-11.0)
[2020-05-16 04:43] LABS: CALCIUM, SERUM 8.3 mg/dL (8.5-10.1); CARBON DIOXIDE 27 mmol/L (21-32); CHLORIDE 98 mmol/L (98-107); GLUCOSE 107 mg/dL (74-106); POTASSIUM 4.3 mmol/L (3.5-5.1); SODIUM SERUM 138 mmol/L (136-145); UREA NITROGEN, BLOOD 57 mg/dL (7-18)
[2020-05-16 04:50] LABS: CREATININE 7.5 mg/dL (0.6-1.3)
--- NOTE | 2020-05-16 05:30 | NUR ---
Premedictaed with Morphine prior turning/moving.AM care done,tolerated well,not in any distress,tolerated HOB flat this time.
[2020-05-16] MEDS: BLOOD SUGAR DIAGNOSTIC 1 EACH STRIP IN SCH ×4 (05:51→23:34)
--- NOTE | 2020-05-16 07:00 | NUR ---
Remains stable.Report given to Kary LOPEZ
--- NOTE | 2020-05-16 08:30 | NUR ---
OK TO GIVE COREG THIS AM PER DR. SHUKLA. PT IS BEING TRIALED OFF BIPAP WITH NASAL CANNULA, ABG IN 1 HOUR PER ORDERS FROM DR. AYALA
[2020-05-16] MEDS: INSULIN GLARGINE, 100 UNIT/ML CARTRIDGE SQ SCH ×2 (09:00→21:00)
[2020-05-16] MEDS: FUROSEMIDE 20 MG TABLET PO SCH (09:00)
[2020-05-16] MEDS: FENOFIBRATE NANOCRYS (145 MG) 145 MG TABLET PO SCH (09:27)
[2020-05-16] MEDS: NIFEdipine XL (30MG) 30 MG TAB PO SCH (09:27)
[2020-05-16] MEDS: TAMSULOSIN 0.4 MG CAP.SR.24H PO SCH (09:28)
[2020-05-16] MEDS: CARVEDILOL 12.5 MG TABLET PO SCH ×2 (09:28→21:00)
[2020-05-16] MEDS: FLUTICASONE/VILANTEROL 1 EACH BLST.W.DEV IH SCH (10:02)
[2020-05-16 15:41] LABS: ABG BASE EXCESS -2.6 mmol/L; ABG OXYGEN SATURATION 94.5 % (92.0-98.5); ABG PCO2 53.5 mmHg (35.0-45.0); ABG PH 7.282 (7.350-7.450); ABG PO2 76.9 mmHg (75.0-100.0); AaDO2 88.7 mmHg; MetHb 0.2 % (0.0-1.5); O2Hb 93.4 % (94.0-97.0); SITE, ABG Left Radial
[2020-05-16] MEDS: HYDROCODONE/APAP 10/325MG 1 EA TABLET PO PRN (15:47)
--- NOTE | 2020-05-16 19:41 | NUR ---
END OF SHIFT NOTE: PT HAD AN UNEVENTFUL SHIFT. PT TAKEN OFF THE BIPAP AT 0830 THIS AM AND IS NOW ON 1L NASAL CANNULA, WITHOUT DIFFICULTY. PT HAD DIALYSIS TODAY, 2L OFF PER AIR AND MISSILE DEFENSE CREWMEMBER. PT REFUSED TO BE REPOSITIONED MORE THAN SLIGHTLY TODAY, RN DID SKIN BREAKDOWN TEACHING. PT GOT PAIN MEDICATION PER MD ORDERS. NEW MIDLINE INSERTED IN LEFT UPPER ARM PER MD ORDERS. PT IS CURRENTLY ON CLEAR LIQUID DIET TILL 0800 TOMORROW MORNING FOR POSSIBLE SURGERY AT 1400 TOMORROW. PT CHECKED ON HOURLY AND PRN BY NURSING STAFF.
[2020-05-16] MEDS: ATORVASTATIN 10 MG TABLET PO SCH (21:00)
--- NOTE | 2020-05-16 21:35 | NUR ---
RT NOTE PT RECEIVED ON NASAL CANNULA. PT AWAKE/ALERT. PLACED PT ON NOC BIPAP PER MD ORDER. TX GIVEN, NO ADVERSE REACTIONS NOTED. BIPAP PLUGGED TO RED OUTLET. ALARMS ON AND AUDIBLE. NO DISTRESS NOTED. WILL CONTINUE TO MONITOR CLOSELY. Addendum: 05/16/20 at 2138 by CONOR SALAMANCA RT Amended: Links added.
[2020-05-16] MEDS: INSULIN REGULAR, HUMAN 100 UNIT/ML 3 ML VIAL SQ PRN (23:34)
[2020-05-17] VITALS (22 sets, daily range): BP systolic 106–137; BP diastolic 42–87
[2020-05-17] MEDS: IPRATROPIUM NEB FS 0.5 MG/2.5 ML AMPUL.NEB NEB SCH ×4 (01:36→20:13)
[2020-05-17] MEDS: CEFAZOLIN 2 GM in IV D5W 100 ML IV SCH ×2 (02:00→10:00)
[2020-05-17] MEDS: HYDROCODONE/APAP 10/325MG 1 EA TABLET PO PRN (04:00)
[2020-05-17 05:17] LABS: ALANINE AMINOTRANSFERASE 18 U/L (12-78); ALBUMIN 2.9 g/dL (3.4-5.0); ALKALINE PHOSPHATASE 57 U/L (46-116); ASPARTATE AMINOTRANSFERASE 19 U/L (15-37); BILIRUBIN,TOTAL 0.7 mg/dL (0.2-1.0); CALCIUM, SERUM 8.2 mg/dL (8.5-10.1); CARBON DIOXIDE 27 mmol/L (21-32); CHLORIDE 98 mmol/L (98-107); CREATININE 6.8 mg/dL (0.6-1.3); GLUCOSE 94 mg/dL (74-106); MAGNESIUM 2.3 mg/dL (1.8-2.4); PHOSPHORUS 7.2 mg/dL (2.5-4.9); POTASSIUM 4.2 mmol/L (3.5-5.1); SODIUM SERUM 138 mmol/L (136-145); TOTAL PROTEIN, SERUM 7.2 g/dL (6.4-8.2); UREA NITROGEN, BLOOD 53 mg/dL (7-18)
[2020-05-17 05:20] LABS: BASOPHILS % (AUTO) 0.3 % (0.0-2.0); EOSINOPHILS % (AUTO) 2.2 % (0.0-6.0); HEMATOCRIT 35 % (39-51); HEMOGLOBIN 11.2 g/dL (13.5-17.5); LYMPHOCYTES # (AUTO) 1.2 /CMM (0.8-4.8); MEAN CORPUSCULAR HGB CONC 32 g/dl (31.0-36.0); MEAN CORPUSCULAR VOLUME 91 fL (80-96); MONOCYTES # (AUTO) 0.8 /CMM (0.1-1.30); MONOCYTES % (AUTO) 6.3 % (2.0-12.0); NEUTROPHILS % (AUTO) 81.2 % (43.0-81.0); PLATELET COUNT (AUTO) 264 /CMM (150-450); RED BLOOD CELL COUNT(AUTO) 3.88 MIL/uL (4.5-6.0); WHITE BLOOD COUNT (AUTO) 12.3 K/uL (4.3-11.0)
[2020-05-17] MEDS: NITROGLYCERIN PACKET 1 GM PACKET TOP SCH ×4 (05:26→23:57)
[2020-05-17] MEDS: BLOOD SUGAR DIAGNOSTIC 1 EACH STRIP IN SCH ×4 (05:41→23:53)
[2020-05-17] MEDS: INSULIN REGULAR, HUMAN 100 UNIT/ML 3 ML VIAL SQ PRN ×3 (05:41→17:06)
--- NOTE | 2020-05-17 06:47 | NUR ---
RN CLOSING NOTES PT ON BED ASLEEP ON 2L O2 VIA NC SPO2 96% TOLERATING WELL, NO SIGN AND SYMPTOMS OF RESPIRATORY DISTRESS, NO SIGNIFICANT CHANGES ON CONDITION NOTED PAIN ON LEFT THIGH WAS NOTED, PAIN MEDS GIVEN @ 0400 STILL ON CLEAR LIQUID, AND WILL TRANSITION TO NPO EXCEPT MEDS@ 0800 FOR HIS PROCEDURE @ 1400, ALL NEEDS ATTENDED WILL ENDORSE TO AM SHIFT NURSE Addendum: 05/17/20 at 0648 by TOO EDGE RN MORPHINE WAS GIVEN @ 0647
[2020-05-17] MEDS: MORPHINE SULFATE INJ 2 MG/ML DISP.SYRIN IV PRN ×2 (06:49→22:32)
[2020-05-17] MEDS: FUROSEMIDE 20 MG TABLET PO SCH (08:02)
[2020-05-17] MEDS: CARVEDILOL 12.5 MG TABLET PO SCH ×2 (08:03→22:24)
[2020-05-17] MEDS: TAMSULOSIN 0.4 MG CAP.SR.24H PO SCH (08:07)
[2020-05-17] MEDS: NIFEdipine XL (30MG) 30 MG TAB PO SCH (08:07)
[2020-05-17] MEDS: FENOFIBRATE NANOCRYS (145 MG) 145 MG TABLET PO SCH (08:22)
[2020-05-17] MEDS: INSULIN GLARGINE, 100 UNIT/ML CARTRIDGE SQ SCH ×2 (08:23→22:51)
[2020-05-17 08:40] LABS: ABG BASE EXCESS -4.5 mmol/L; ABG OXYGEN SATURATION 92.7 % (92.0-98.5); ABG PCO2 47.5 mmHg (35.0-45.0); ABG PH 7.287 (7.350-7.450); ABG PO2 70.2 mmHg (75.0-100.0); AaDO2 73.4 mmHg; COHb 1.2 % (0.5-1.5); MetHb 0.3 % (0.0-1.5); O2Hb 91.3 % (94.0-97.0); SITE, ABG Left Radial; VENT MODE, BG Nasal Cannula
[2020-05-17] MEDS: HYDROCODONE/APAP 5/325MG 1 EACH TABLET PO PRN (09:28)
[2020-05-17] MEDS: FLUTICASONE/VILANTEROL 1 EACH BLST.W.DEV IH SCH (11:52)
[2020-05-17] MEDS ORDERED: BUPIVACAINE 0.5 % PF 150 MG/30 ML VIAL ONE (16:06)
[2020-05-17] MEDS ORDERED: ANESTHESIA TRAY IN PYXIS 1 EA TRAY MC ONE (16:06)
[2020-05-17] MEDS ORDERED: BACITRACIN 50000 UNITS/VIAL ONE (16:06)
[2020-05-17] MEDS ORDERED: HYDROMORPHONE INJ 2 MG/ML DISP.SYRIN ONE (16:52)
[2020-05-17] MEDS ORDERED: ATRACURIUM 100MG/10 ML MDV IV ONE (16:52)
--- NOTE | 2020-05-17 17:47 | NUR ---
Pt was received in bed, resting, a,ox4. On a NC at 3 LPM, titrated down to 2LPM with O2 sat >95%. Kept NPO since after breakfast at 8AM, had few sips of water with pills, last taken at 0930. Pt is oliguric, had about 20 cc of urine the entire shift, no HD today. Pt was taken in OR at 1730 via bed. Gave report to anes, with blood sugar of 119 at 1630. Held Nitro-bid as well as requested by anes. Family is requesting for them to be called by the surgeon after the surgery is done. Will give report to technical laboratory asst.
[2020-05-17] MEDS ORDERED: TRANEXAMIC ACID 1,000 MG in IV NS 0.9% 100 ML IV ONE (19:00)
--- NOTE | 2020-05-17 21:00 | NUR ---
Received patient in no acute distress in bed s/p left hip susana arthroplasty by post op team. Patient is drowsy but able to answer question. Patient placed back on bipap and tolerating well. Patient has abduction pillow for hip precautions. patient placed back on monitor with vitals wnl. patient has left ac iv that is clean dry intact and patent with ns from surgery. bed in low lock position with rials up x 2. call light within reach and all safety measures ensured and carried out. will continue to monitor.
[2020-05-17] MEDS: ATORVASTATIN 10 MG TABLET PO SCH (22:23)
[2020-05-18] VITALS (13 sets, daily range): BP systolic 118–149; BP diastolic 48–67
--- NOTE | 2020-05-18 | NUR ---
Endorsed report to Beth LOPEZ for continuity of care. patient remains in no acute distress in bed. C/O Pain with pain management initiated.
[2020-05-18] MEDS: IPRATROPIUM NEB FS 0.5 MG/2.5 ML AMPUL.NEB NEB SCH ×4 (01:24→20:00)
[2020-05-18] MEDS ORDERED: CEFAZOLIN 1 GM VIAL IM SCH (02:00)
[2020-05-18] MEDS: CEFAZOLIN 2 GM in IV D5W 100 ML IV SCH ×2 (02:29→11:23)
[2020-05-18 05:26] LABS: BASOPHILS % (AUTO) 0.3 % (0.0-2.0); EOSINOPHILS % (AUTO) 1.2 % (0.0-6.0); HEMATOCRIT 30 % (39-51); HEMOGLOBIN 9.2 g/dL (13.5-17.5); LYMPHOCYTES # (AUTO) 0.7 /CMM (0.8-4.8); LYMPHOCYTES % (AUTO) 6.1 % (20.0-44.0); MEAN CORPUSCULAR HGB CONC 30 g/dl (31.0-36.0); MEAN CORPUSCULAR VOLUME 96 fL (80-96); MONOCYTES % (AUTO) 9.2 % (2.0-12.0); NEUTROPHILS # (AUTO) 9.4 /CMM (1.8-8.9); NEUTROPHILS % (AUTO) 83.2 % (43.0-81.0); PLATELET COUNT (AUTO) 217 /CMM (150-450); RED BLOOD CELL COUNT(AUTO) 3.13 MIL/uL (4.5-6.0); WHITE BLOOD COUNT (AUTO) 11.3 K/uL (4.3-11.0)
[2020-05-18] MEDS: NITROGLYCERIN PACKET 1 GM PACKET TOP SCH ×3 (06:18→18:00)
[2020-05-18] MEDS: BLOOD SUGAR DIAGNOSTIC 1 EACH STRIP IN SCH ×4 (06:19→22:25)
[2020-05-18 06:49] LABS: CALCIUM, SERUM 7.8 mg/dL (8.5-10.1); CARBON DIOXIDE 26 mmol/L (21-32); CHLORIDE 99 mmol/L (98-107); GLUCOSE 116 mg/dL (74-106); POTASSIUM 4.7 mmol/L (3.5-5.1); SODIUM SERUM 137 mmol/L (136-145); UREA NITROGEN, BLOOD 74 mg/dL (7-18)
[2020-05-18 06:51] LABS: CREATININE 8.2 mg/dL (0.6-1.3)
[2020-05-18] MEDS: FUROSEMIDE 20 MG TABLET PO SCH (08:40)
[2020-05-18] MEDS: CARVEDILOL 12.5 MG TABLET PO SCH (08:40)
[2020-05-18] MEDS: NIFEdipine XL (30MG) 30 MG TAB PO SCH (08:40)
[2020-05-18] MEDS: FENOFIBRATE NANOCRYS (145 MG) 145 MG TABLET PO SCH (08:40)
[2020-05-18] MEDS: TAMSULOSIN 0.4 MG CAP.SR.24H PO SCH (08:41)
[2020-05-18] MEDS: FLUTICASONE/VILANTEROL 1 EACH BLST.W.DEV IH SCH (08:41)
[2020-05-18] MEDS: INSULIN GLARGINE, 100 UNIT/ML CARTRIDGE SQ SCH ×2 (09:00→22:40)
[2020-05-18] MEDS: HEPARIN SODIUM, PORCINE 5000 UNITS/1 ML VIAL SQ SCH ×2 (11:23→22:53)
[2020-05-18] MEDS: HYDROCODONE/APAP 5/325MG 1 EACH TABLET PO PRN (11:25)
[2020-05-18] MEDS ORDERED: BLOOD SUGAR DIAGNOSTIC 1 EACH STRIP IN SCH (12:00)
[2020-05-18] MEDS ORDERED: DEXTROSE 50%-WATER 50 ML DISP.SYRIN IV PRN (12:00)
[2020-05-18] MEDS ORDERED: INSULIN REGULAR, HUMAN 100 UNIT/ML 3 ML VIAL SQ PRN (12:00)
--- NOTE | 2020-05-18 12:26 | NUR ---
Pt was received on Bipap this am, changed to 1 LPM/NC to keep O2 sat 88-90%, tolerating well. Abductor pillow in place, turned and repositioned the whole body carefully. gave [place] for pain. pls see DEC. Refused PT evel this am, PT will try again this pm. left pedal pulses heard with doppler only. good cap refill noted, leg feels warm. Heparin SQ started as ordered. Obtained order to start diabetic/renal diet, did not feel like eating. 1210 Transferred to tele as ordered, gave report to Oma LOPEZ
[2020-05-18] MEDS ORDERED: EPOETIN ALFA (10,000 UNIT) 10,000 UNIT/ML VIAL IV ONE (15:00)
--- NOTE | 2020-05-18 18:36 | NUR ---
RN END OF SHIFT SUMMARY PT IS A/OX2, AFEBRILE. ARMENINAN SPEAKING. RESPIRATIONS ARE EVEN AND UNLABORED, NOT IN ANY ACUTE DISTRESS NOTED. DENIES ANY CHEST PAIN,SOB, N/V. ABDOMEN IS SOFT AND NONDISTENDED, BOWEL SOUND ARE PRESENT IN ALL 4 QUADRANTS UPON AUSCULTATION. DENIES ANY BLADDER DISCOMFORT. ABDUCTOR PILLOW PLACED IN BETWEEN LEGS. DRESSINGS TO LEFT HIP IN PLACE. SAFETY MEASURES ARE IN PLACE. CALL LIGHT IS LEFT WITHIN REACH. WILL MONITOR AND CONTINUE POC.
--- NOTE | 2020-05-18 19:30 | NUR ---
MSRN GETTING OOB, CONFUSED, LIMITED THAI. NEEDS CLOSER SUPERVISION. HFR. LEFT HIP DRESSING INTACT. XRAY OF LEFT HIP DONE.
--- NOTE | 2020-05-18 20:40 | NUR ---
MSRN SPOKE TO PATIENTS , STATED WILL NEED TO SPEAK TO MD IN AM. WILL ENDORSE TO INCOMING RN IN AM. CONCERNS REGARDING REHAB.
[2020-05-18] MEDS ORDERED: ENOXAPARIN SODIUM 30 MG/0.3 ML DISP.SYRIN SQ SCH (21:00)
[2020-05-18] MEDS ORDERED: ENOXAPARIN SODIUM 40 MG/0.4 ML DISP.SYRIN SQ SCH (21:00)
--- NOTE | 2020-05-18 22:47 | NUR ---
MSRCarly ARMANDO WAS 88, REFUSED TO EAT SNACKS AND PO MEDS. HD DONE. LIMITED LITHUANIAN, CONFUSED. STATED NOT IN PAIN. REFUSED TO TAKE ANYTHING ORAL.. WILL REASSESS.NANCY HELD FOR NOW.
[2020-05-19] MEDS: ATORVASTATIN 10 MG TABLET PO SCH ×2 (00:18→21:24)
[2020-05-19] MEDS: CARVEDILOL 12.5 MG TABLET PO SCH ×3 (00:19→21:24)
--- NOTE | 2020-05-19 00:19 | NUR ---
MSRN AGREED TO TAKE MEDICATION COREG AND LIPITOR THIS TIME WITH SMALL SIPS OF APPLE JUICE AND FEW BITES OF JELLO. MORE COOPERATIVE AT THIS TIME.
[2020-05-19 00:30] VITALS: BP 177/72
[2020-05-19] MEDS: NITROGLYCERIN PACKET 1 GM PACKET TOP SCH ×4 (00:57→18:11)
[2020-05-19] MEDS: IPRATROPIUM NEB FS 0.5 MG/2.5 ML AMPUL.NEB NEB SCH ×4 (01:48→19:42)
--- NOTE | 2020-05-19 01:53 | NUR ---
Pt is refusing bipap. Will not allow me to put mask on. No sob or distress noted. RN aware. Addendum: 05/19/20 at 0155 by BABS PEREIRA RT Amended: Links added.
[2020-05-19] MEDS: MORPHINE SULFATE INJ 2 MG/ML DISP.SYRIN IV PRN (02:15)
--- NOTE | 2020-05-19 04:00 | NUR ---
MSRN REMAINS UNMANEAGABLE, PULLED ALL DRESSING ON LEGS AND ARMS, SKIN TEARS OPEN TO AIR. KICKING AND HITTING STAFF, ABDUCTION PILLOW ON FLOOR. ORDERE FOR BILATERAL SOFT WRIST RESTRAINTS OBTAINED. NEEDS FREQ CHECKING. REPOSITIONED FOR COMFORT.
[2020-05-19 04:33] VITALS: BP 138/62
[2020-05-19] MEDS: BLOOD SUGAR DIAGNOSTIC 1 EACH STRIP IN SCH ×4 (06:31→21:55)
--- NOTE | 2020-05-19 06:31 | NUR ---
MSRN BS 112 NO COVERAGE. SLEEPING AT THIS TIME EASILY AROUSABLE. DID NOT SLEEP WHOLE NIGHT, 02 AT 4 L MAINTAINED. CLOSELY WATCHED.
[2020-05-19 07:27] LABS: BASOPHILS # (AUTO) 0.1 /CMM (0.0-0.2); BASOPHILS % (AUTO) 0.4 % (0.0-2.0); EOSINOPHILS % (AUTO) 0.1 % (0.0-6.0); HEMATOCRIT 33 % (39-51); HEMOGLOBIN 10.5 g/dL (13.5-17.5); LYMPHOCYTES % (AUTO) 7.6 % (20.0-44.0); MEAN CORPUSCULAR HGB CONC 32 g/dl (31.0-36.0); MEAN CORPUSCULAR VOLUME 90 fL (80-96); MONOCYTES # (AUTO) 1.2 /CMM (0.1-1.30); NEUTROPHILS # (AUTO) 10.8 /CMM (1.8-8.9); NEUTROPHILS % (AUTO) 82.9 % (43.0-81.0); PLATELET COUNT (AUTO) 252 /CMM (150-450); RED BLOOD CELL COUNT(AUTO) 3.64 MIL/uL (4.5-6.0)
--- NOTE | 2020-05-19 07:30 | NUR ---
RN OPENING NOTES PATIENT IN BED RESTING. NOT IN ANY FORM OF DISTRESS. NO SOB. DENIED PAIN OR DISCOMFORT AT THIS TIME. IV ACCESS INTACT AND PATENT. RESTRAINT OFF, PATIENT IS CALM AND COOPERATIVE. BED IN LOW/LOCKED POSITION, SIDERAILS UPX2,CALL LIGHT IN REACH, WILL MONIOTR ACCORDINGLY
[2020-05-19 08:00] VITALS: BP 143/66
[2020-05-19 08:30] LABS: ABG BASE EXCESS -4.2 mmol/L; ABG OXYGEN SATURATION 88.3 % (92.0-98.5); ABG PCO2 49.7 mmHg (35.0-45.0); ABG PH 7.278 (7.350-7.450); ABG PO2 59.2 mmHg (75.0-100.0); AaDO2 52.8 mmHg; COHb 0.7 % (0.5-1.5); MetHb 0.1 % (0.0-1.5); O2Hb 87.6 % (94.0-97.0); SITE, ABG Left Radial; VENT MODE, BG 1 LNC
[2020-05-19 08:30] LABS: ABG BASE EXCESS -4.9 mmol/L; ABG OXYGEN SATURATION 90.9 % (92.0-98.5); ABG PCO2 46.8 mmHg (35.0-45.0); ABG PH 7.284 (7.350-7.450); ABG PO2 63.8 mmHg (75.0-100.0); AaDO2 138.6 mmHg; COHb 0.7 % (0.5-1.5); O2Hb 90.3 % (94.0-97.0); SITE, ABG Right Radial
[2020-05-19 08:55] LABS: CALCIUM, SERUM 8.2 mg/dL (8.5-10.1); CARBON DIOXIDE 26 mmol/L (21-32); CHLORIDE 97 mmol/L (98-107); CREATININE 6.6 mg/dL (0.6-1.3); GLUCOSE 109 mg/dL (74-106); POTASSIUM 4.2 mmol/L (3.5-5.1); SODIUM SERUM 136 mmol/L (136-145); UREA NITROGEN, BLOOD 53 mg/dL (7-18)
[2020-05-19] MEDS: TAMSULOSIN 0.4 MG CAP.SR.24H PO SCH (09:02)
[2020-05-19] MEDS: NIFEdipine XL (30MG) 30 MG TAB PO SCH (09:03)
[2020-05-19] MEDS: FUROSEMIDE 20 MG TABLET PO SCH (09:03)
[2020-05-19] MEDS: FENOFIBRATE NANOCRYS (145 MG) 145 MG TABLET PO SCH (09:03)
[2020-05-19] MEDS: FLUTICASONE/VILANTEROL 1 EACH BLST.W.DEV IH SCH (09:05)
[2020-05-19] MEDS: INSULIN GLARGINE, 100 UNIT/ML CARTRIDGE SQ SCH ×2 (09:08→21:55)
[2020-05-19] MEDS: HEPARIN SODIUM, PORCINE 5000 UNITS/1 ML VIAL SQ SCH ×2 (09:12→21:26)
[2020-05-19 16:00] VITALS: BP 150/57
--- NOTE | 2020-05-19 19:33 | NUR ---
RN CLOSING NOTES PATIENT IN STABLE CONDITION. ALL NEEDS ATTENDED AND PROVIDED. ALL DUE MEDS GIVEN ORDERED. TURNED AND REPOSITIONED PATIENT EVERY 2HRS AND NEEDED. KEPT PATIENT SAFE AND COMFORTABLE. BED IN LOW/LOCKED POSITION. SIDERAILS UPX2. CALL LIGHT IN REACH. ENDORSED TO NIGHT RN FOR ANNA. Addendum: 05/19/20 at 1936 by AKI GUZMAN OFF RESTRAINT THE ENTIRE AM SHIFT, PATIENT IS CALM AND COOPERATIVE.
--- NOTE | 2020-05-19 19:55 | NUR ---
RN NOTES RECEIVED PATIENT IN BED RESTING. NOT IN ANY FORM OF DISTRESS. NO SOB. DENIED PAIN OR DISCOMFORT AT THIS TIME. IV ACCESS INTACT AND PATENT. RESTRAINT OFF, PATIENT IS CALM AND COOPERATIVE. SAFETY MEASURES IN PLACE, ASPIRATION PRECAUTION EMPHASIZED. BED IN LOW/LOCKED POSITION, SIDE RAILS UPX2,CALL LIGHT IN REACH, WILL MONITOR ACCORDINGLY
[2020-05-19 20:00] VITALS: BP 136/54
--- NOTE | 2020-05-19 21:31 | NUR ---
RN NOTES PATIENT'S EM CALLED, INFORMED HER REGARDING PATIENTS' CURRENT CONDITION. PATIENT IS RESTING COMFORTABLY, ASLEEP AT THIS TIME, ON BIPAP FIO2 AT 40% SATING 96%. PATIENT REFUSED PHYSICAL THERAPY TODAY IN THE MORNING, WANTED THE PATIENT TO HAVE PHYSICAL THERAPY TOMORROW. REPOSITIONED FOR COMFORT, SAFETY MEASURES IN PLACE, ASPIRATION PRECAUTION EMPHASIZED, INFORMED HER THAT HE WAS CALM THE ENTIRE DAY, OFF OF RESTRAINTS AT THIS TIME, WILL ENDORSE TO AM NURSE TO LET THE FAMILY TALK WITH PATIENT IN THE MORNING. WILL ENCOURAGE PHYSICAL THERAPY. FAMILY WILL CALL IN THE MORNING.
--- NOTE | 2020-05-19 22:59 | NUR ---
RN NOTES PATIENT'S DAUGHTER YOAV CALLED, INFORMED HER REGARDING PATIENTS' CURRENT CONDITION. PATIENT IS RESTING COMFORTABLY, ASLEEP AT THIS TIME, ON BIPAP FIO2 AT 40% - 50% SATING 96%. REPOSITIONED FOR COMFORT, SAFETY MEASURES IN PLACE, ASPIRATION PRECAUTION EMPHASIZED, INFORMED HER THAT HE WAS CALM THE ENTIRE DAY, OFF OF RESTRAINTS AT THIS TIME, WILL ENDORSE TO AM NURSE TO LET THE FAMILY TALK WITH PATIENT IN THE MORNING. WILL ENCOURAGE PHYSICAL THERAPY. FAMILY WILL CALL IN THE MORNING.
[2020-05-20] VITALS (7 sets, daily range): BP systolic 125–142; BP diastolic 44–67
[2020-05-20] MEDS: NITROGLYCERIN PACKET 1 GM PACKET TOP SCH ×4 (00:25→18:21)
[2020-05-20] MEDS: IPRATROPIUM NEB FS 0.5 MG/2.5 ML AMPUL.NEB NEB SCH ×3 (01:44→13:19)
--- NOTE | 2020-05-20 04:30 | NUR ---
RN NOTES BILATERAL SOFT WRIST RESTRAINTS DISCONTINUED, PATIENT DIDN'T SHOW ANY SIGNS OF RESTLESSNESS, COMBATIVE OR ANY EPISODES OF PULLING ANY TUBES. ABLE TO REST ANS SLEPT WITH LONG INTERVALS. COOPERATIVE, NO EPISODES OF DISTRESS, BIPAP TOLERATING WELL AT 50% FIO2. WILL CONTINUE TO MONITOR.
[2020-05-20 06:44] LABS: BASOPHILS % (AUTO) 0.3 % (0.0-2.0); EOSINOPHILS % (AUTO) 0.2 % (0.0-6.0); HEMATOCRIT 31 % (39-51); HEMOGLOBIN 9.9 g/dL (13.5-17.5); LYMPHOCYTES # (AUTO) 1.5 /CMM (0.8-4.8); LYMPHOCYTES % (AUTO) 9.8 % (20.0-44.0); MEAN CORPUSCULAR HGB CONC 32 g/dl (31.0-36.0); MEAN CORPUSCULAR VOLUME 91 fL (80-96); MONOCYTES # (AUTO) 1.4 /CMM (0.1-1.30); MONOCYTES % (AUTO) 9.3 % (2.0-12.0); NEUTROPHILS # (AUTO) 11.9 /CMM (1.8-8.9); NEUTROPHILS % (AUTO) 80.4 % (43.0-81.0); PLATELET COUNT (AUTO) 299 /CMM (150-450); RED BLOOD CELL COUNT(AUTO) 3.45 MIL/uL (4.5-6.0); WHITE BLOOD COUNT (AUTO) 14.8 K/uL (4.3-11.0)
[2020-05-20 07:04] LABS: CALCIUM, SERUM 8.5 mg/dL (8.5-10.1); CARBON DIOXIDE 25 mmol/L (21-32); CHLORIDE 97 mmol/L (98-107); GLUCOSE 113 mg/dL (74-106); POTASSIUM 4.8 mmol/L (3.5-5.1); SODIUM SERUM 136 mmol/L (136-145); UREA NITROGEN, BLOOD 78 mg/dL (7-18)
--- NOTE | 2020-05-20 07:06 | NUR ---
RN NOTES ALL NEEDS ATTENDED AND MET, ABLE TO REST AND SLEPT COMFORTABLY, REPOSITIONED FOR COMFORT, SAFETY MEASURES IN PLACE, ASPIRATION PRECAUTION EMPHASIZED, CALL LIGHT WITHIN EASY REACH IV ACCESS INTACT AND PATENT, DENIES PAIN AT THIS TIME, ABDUCTOR PILLOW INPLACE, NO RESTLESSNESS NOTED, ABLE TO TOLERATE BIPAP AT HOURS OF SLEEP SATING 96%. WILL ENDORSE TO AM NURSE TO LET PATIENT TALK TO FAMILY AND HAVE MD TALK WITH FAMILY PER REPORT FROM YESTERDAYS' AM NURSE ASSIGNED. ALL NEEDS ANTICIPATED. WILL ENDORSED FOR CONTINUITY OF CARE.
[2020-05-20] MEDS: BLOOD SUGAR DIAGNOSTIC 1 EACH STRIP IN SCH ×3 (07:24→18:08)
--- NOTE | 2020-05-20 07:30 | NUR ---
PT RECEIVED RESTING COMFORTABLY IN BED WITH EYES CLOSED. NO S/S OR C/O PAIN OR DISTRESS NOTED. SIDE RAILS UP X2, CALL LIGHT LEFT WITHIN REACH. WILL CONTINUE PLAN OF CARE.
--- NOTE | 2020-05-20 07:50 | NUR ---
CHANGE OF CONDITION PT SOB TRANSITIONING FROM BIPAP. RT AT BEDSIDE APPLIED VENTURI MASK ON 6L. WILL CONTINUE TO MONITOR.
--- NOTE | 2020-05-20 08:00 | NUR ---
02 WNL REASSESSED AND REMOVED FROM VENTURI TO NASAL CANULA. 98% 02 SAT ON 3L
[2020-05-20 08:08] LABS: CREATININE 8.6 mg/dL (0.6-1.3)
[2020-05-20 08:39] LABS: ABG OXYGEN SATURATION 81.6 % (92.0-98.5); ABG PCO2 39.9 mmHg (35.0-45.0); ABG PH 7.377 (7.350-7.450); ABG PO2 45.7 mmHg (75.0-100.0); AaDO2 135.8 mmHg; COHb 1.3 % (0.5-1.5); MetHb 0.2 % (0.0-1.5); O2Hb 80.4 % (94.0-97.0); SITE, ABG Right Radial; VENT MODE, BG 3L NC
[2020-05-20] MEDS: TAMSULOSIN 0.4 MG CAP.SR.24H PO SCH (09:50)
[2020-05-20] MEDS: FUROSEMIDE 20 MG TABLET PO SCH (09:50)
[2020-05-20] MEDS: FENOFIBRATE NANOCRYS (145 MG) 145 MG TABLET PO SCH (09:50)
[2020-05-20] MEDS: NIFEdipine XL (30MG) 30 MG TAB PO SCH (09:51)
[2020-05-20] MEDS: CARVEDILOL 12.5 MG TABLET PO SCH (09:52)
[2020-05-20] MEDS: FLUTICASONE/VILANTEROL 1 EACH BLST.W.DEV IH SCH (09:56)
[2020-05-20] MEDS: HEPARIN SODIUM, PORCINE 5000 UNITS/1 ML VIAL SQ SCH (10:04)
[2020-05-20] MEDS: INSULIN GLARGINE, 100 UNIT/ML CARTRIDGE SQ SCH (10:05)
--- NOTE | 2020-05-20 19:29 | NUR ---
TRANSFER TO ARU DISCHARGE INSTRUCTIONS GIVEN ORDERED. ALL QUESTIONS AND CONCERNS ADDRESSED. PATIENT VERBALIZED UNDERSTANDING. MEDICATION RECONCILIATION FORM COMPLETED AND COPY GIVEN TO PATIENT. REPORT GIVEN TO [facility]. PATIENT TRANSPORTED BY AMBULANCE WITH ALL PERSONAL BELONGINGS. NO DISTRESS NOTED AT TIME OF DEPARTURE.
[2020-05-20] MEDS ORDERED: HYDR20VI4 IV (21:15)
== END 2020-05-20 19:30 | DRG 469 ==
LOC: ER 12:40 → MED 15:33 → TELE 16:09 → ICU 05-15 02:34 → TELE 05-18 12:00 → MED 05-20 12:59
PROVIDERS: ADMIT Internal Medicine; ATTEND Family Medicine
PROC: 5A09457 Assistance with Respiratory Ventilation, 24-96 Consecutive Hours, Continuous Positive Airway Pressure (ICD-10-PCS; principal; 2020-05-15)
PROC: 5A1D70Z Performance of Urinary Filtration, Intermittent, Less than 6 Hours Per Day (ICD-10-PCS; 2020-05-15)
PROC: 05H633Z Insertion of Infusion Device into Left Subclavian Vein, Percutaneous Approach (ICD-10-PCS; 2020-05-16)
PROC: B547ZZA Ultrasonography of Left Subclavian Vein, Guidance (ICD-10-PCS; 2020-05-16)
PROC: 0SRS0JZ Replacement of Left Hip Joint, Femoral Surface with Synthetic Substitute, Open Approach (ICD-10-PCS; 2020-05-17)
DX: S72.012A Unspecified intracapsular fracture of left femur, initial encounter for closed fracture (principal); N18.6 End stage renal disease; J96.01 Acute respiratory failure with hypoxia; J96.02 Acute respiratory failure with hypercapnia; I13.2 Hypertensive heart and chronic kidney disease with heart failure and with stage 5 chronic kidney disease, or end stage renal disease; E66.2 Morbid (severe) obesity with alveolar hypoventilation; E87.2 Acidosis; F05 Delirium due to known physiological condition; R57.9 Shock, unspecified; J98.11 Atelectasis; W18.30XA Fall on same level, unspecified, initial encounter; Y92.009 Unspecified place in unspecified non-institutional (private) residence as the place of occurrence of the external cause; J44.9 Chronic obstructive pulmonary disease, unspecified; Z79.4 Long term (current) use of insulin; E78.5 Hyperlipidemia, unspecified; E11.22 Type 2 diabetes mellitus with diabetic chronic kidney disease; I25.10 Atherosclerotic heart disease of native coronary artery without angina pectoris; Z86.73 Personal history of transient ischemic attack (TIA), and cerebral infarction without residual deficits; Z95.1 Presence of aortocoronary bypass graft; Z99.2 Dependence on renal dialysis; I25.2 Old myocardial infarction; Z68.34 Body mass index [BMI] 34.0-34.9, adult; X58.XXXA Exposure to other specified factors, initial encounter; Y93.9 Activity, unspecified; I50.9 Heart failure, unspecified; D64.9 Anemia, unspecified; Z79.02 Long term (current) use of antithrombotics/antiplatelets; Z83.3 Family history of diabetes mellitus
CPT/HCPCS: 36410; 36415; 36600; 70450-TC; 71045-TC; 73020; 73120-TC; 73502; 80048-TC; 80053-TC; 80076-TC; 82803-TC; 82962-TC; 83735-TC; 84100-TC; 84484-TC; 85025-TC; 85610-TC; 85730-TC; 86706; 87081-TC; 87340; 88305-TC; 88311-TC; 90935-TC; 93307-TC; 94760-TC; 94762-TC; 94799-TC; 97110-TC; 97112-TC; 97530-TC; A4216; A4217; A6209; A6403; C1776; G0378; J0360; J0690; J0885; J1170; J1644; J1815; J2270; J2405; J2704; J3490; J7030; J7060; P9047